=== PATIENT | male | born 1960 | race American Indian/Alaskan Native ===

== ENCOUNTER 2016-09-30 05:34 | Emergency (ER) | payer OTHER ==
[2016-09-30] MEDS ORDERED: ATIVAN IV PRN (06:24)
[2016-09-30] MEDS ORDERED: ATIVAN PO PRN ×2 (06:24)
[2016-09-30 06:40] LABS: Anion Gap 21 mmol/L; Blood Urea Nitrogen 7 mg/dL (9-20); Calcium 8.1 mg/dL (8.4-10.2); Carbon Dioxide 25 mmol/L (22-30); Chloride 104.2 mmol/L (98-107); Glucose 118 mg/dL (75-100); Potassium 4.1 mmol/L (3.6-5.0); Sodium 146 mmol/L (137-145)
[2016-09-30 06:50] LABS: Basophils % (Auto) 0.7 % (0.0-1.8); Eosinophils % (Auto) 0.3 % (0.0-4.3); Hematocrit 41.7 % (35.5-45.6); Hemoglobin 13.6 gm/dl (11.8-15.2); Mean Corpuscular HGB Conc 33 % (32-34); Mean Corpuscular Hemoglobin 28 pg (28-32); Mean Corpuscular Volume 85 fl (84-94); Platelet Count 233 K/mm3 (140-440); Red Blood Count 4.93 M/mm3 (3.65-5.03); Red Cell Distribution Width 16.4 % (13.2-15.2); White Blood Count 8.5 K/mm3 (4.5-11.0)
--- NOTE | 2016-09-30 07:23 | Emergency Department Report ---
ED Psych HPI - General Chief Complaint: Psych Stated Complaint: PSYCH EVALUATION Time Seen by Provider: 09/30/16 06:02 Source: patient Mode of arrival: Ambulatory Limitations: No Limitations - History of Present Illness Initial Comments: 55-year-old male with a past medical history of PTSD, alcohol abuse, and previous suicide attempts presents to the hospital with complaints of suicidal ideation. Patient repeating that he wants to kill himself and is tired of living. He admits to attempting to kill himself in the past with pill overdose and attempted carbon monoxide poisoning with the car in an [place]in the [place]. He' s been having these symptoms intermittently for the last 5 years. He denies being on any current psychiatric medication. He admits to significant alcohol daily with last alcohol use prior to arrival. Denies previous history of alcohol withdrawal seizures or tremors. No physical complaints. - Related Data Home Medications Medication Instructions Recorded Confirmed Last Taken No Known Home Medications [No 10/01/16 10/01/16 Unknown Reported Home Medications] Allergies Allergy/AdvReac Type Severity Reaction Status Date / Time No Known Allergies Allergy Verified 09/30/16 05:45 ED Review of Systems ROS: Stated complaint: PSYCH EVALUATION Other details as noted in HPI Comment: All other systems reviewed and negative Other: Constitutional: No fevers chills Eyes: No eye pain visual changes ENT: No ear pain or throat pain Neck: Denies pain Respiratory: Denies cough wheezing shortness of breath Cardiovascular: Denies chest pain, palpitations, syncope GI: Denies abdominal pain, nausea, vomiting, diarrhea : Denies dysuria Musculoskeletal: Denies back pain Skin: Denies rash, lesions, erythema Neurologic: Denies headache, numbness, weakness Psychiatric: As per HPI ED Past Medical Hx - Past Medical History Previous Medical History?: Yes Hx Psychiatric Treatment: Yes (PTSD, Alcoholic, Prior SI) - Surgical History Past Surgical History?: No Additional Surgical History: Pt Denies - Social History Smoking Status: Current Every Day Smoker Substance Use Type: Alcohol - Medications Home Medications: Home Medications Medication Instructions Recorded Confirmed Last Taken Type No Known Home Medications [No 10/01/16 10/01/16 Unknown History Reported Home Medications] ED Physical Exam - General Limitations: No Limitations - Other Other exam information: General: Alert, no acute distress Head exam: Atraumatic, normocephalic Eyes exam: Normal appearance ENT: Moist mucous membrane, normal oropharynx Neck exam: Normal inspection, full range of motion, no meningismus nontender Respiratory exam: Clear to auscultation bilateral, no wheezes, rales, crackles Cardiovascular: Normal rate and rhythm, normal heart sounds Abdomen: Soft, nondistended, and nontender, with normal bowel sounds, no rebound, or guarding Extremity: Full range of motion normal inspection no deformity Back: Normal Inspection, full range of motion, no tenderness Neurologic: Alert, oriented x3, cranial nerves intact, no motor or sensory deficit Psychiatric: Belligerent at times and physical restraints Skin: Warm, dry, intact ED Course Vital Signs 09/30/16 09/30/16 09/30/16 05:43 10:38 22:00 Temperature 98.1 F 98.0 F 98.5 F Pulse Rate 96 H 91 H 98 H Respiratory 18 18 18 Rate Blood Pressure 134/93 98/60 111/62 [Right] O2 Sat by Pulse 96 98 98 Oximetry 10/01/16 07:44 Temperature 98.6 F Pulse Rate 72 Respiratory 18 Rate Blood Pressure 123/76 [Right] O2 Sat by Pulse 97 Oximetry - Reevaluation(s) Reevaluation #1: 09/30/16 07:21 Patient required physical restraints and staff safe as well. Lab reveal acute alcohol intoxication with a level of 0.44 Reevaluation #2: 09/30/16 07:22 Mental health has been consult however, patient will require continued ED evaluation until his alcohol level decreases below 0.2 for clearance for transfer to inpatient psychiatric facility for suicidal ideation Reevaluation #3: 09/30/16 16:05 repeat etoh ordered. ETOH needs to be below .15 for medical clearance - Consultations Consultation #1: 09/30/16 06:09 Mental health has been consulted ED Medical Decision Making - Lab Data Result diagrams: 09/30/16 06:13 09/30/16 06:13 Lab Results 09/30/16 09/30/16 09/30/16 Range/Units 06:13 06:13 06:13 WBC 8.5 (4.5-11.0) K/mm3 RBC 4.93 (3.65-5.03) M/mm3 Hgb 13.6 (11.8-15.2) gm/dl Hct 41.7 (35.5-45.6) % MCV 85 (84-94) fl MCH 28 (28-32) pg MCHC 33 (32-34) % RDW 16.4 H (13.2-15.2) % Plt Count 233 (140-440) K/mm3 Lymph % (Auto) 48.4 H (13.4-35.0) % [place] % (Auto) 7.8 H (0.0-7.3) % Eos % (Auto) 0.3 (0.0-4.3) % Baso % (Auto) 0.7 (0.0-1.8) % Lymph # 4.1 (1.2-5.4) K/mm3 [place] # 0.7 (0.0-0.8) K/mm3 Eos # 0.0 (0.0-0.4) K/mm3 Baso # 0.1 (0.0-0.1) K/mm3 Seg Neutrophils % 42.8 (40.0-70.0) % Seg Neutrophils # 3.6 (1.8-7.7) K/mm3 Sodium 146 H (137-145) mmol/L Potassium 4.1 (3.6-5.0) mmol/L Chloride 104.2 (98-107) mmol/L Carbon Dioxide 25 (22-30) mmol/L Anion Gap 21 mmol/L BUN 7 L (9-20) mg/dL Creatinine 0.7 L (0.8-1.5) mg/dL Estimated GFR > 60 ml/min BUN/Creatinine Ratio 10.00 % Glucose 118 H (75-100) mg/dL Calcium 8.1 L (8.4-10.2) mg/dL Magnesium (1.7-2.3) mg/dL Urine Color (Yellow) Urine Turbidity (Clear) Urine pH (5.0-7.0) Ur Specific [place] (1.003-1.030) Urine Protein (Negative) mg/dL Urine Glucose (UA) (Negative) mg/dL Urine Ketones (Negative) mg/dL Urine Blood (Negative) Urine Nitrite (Negative) Urine Bilirubin (Negative) Urine Urobilinogen (<2.0) mg/dL Ur Leukocyte Esterase (Negative) Urine WBC (Auto) (0.0-6.0) /HPF Urine RBC (Auto) (0.0-6.0) /HPF Urine Mucus /HPF Urine Opiates Screen Urine Methadone Screen Ur Barbiturates Screen Ur Phencyclidine Scrn Ur Amphetamines Screen U Benzodiazepines Scrn Urine Cocaine Screen U Marijuana (THC) Screen Drugs of Abuse Note Plasma/Serum Alcohol 0.44 H (0-0.07) gm% 09/30/16 09/30/16 09/30/16 Range/Units 06:13 10:00 10:00 WBC (4.5-11.0) K/mm3 RBC (3.65-5.03) M/mm3 Hgb (11.8-15.2) gm/dl Hct (35.5-45.6) % MCV (84-94) fl MCH (28-32) pg MCHC (32-34) % RDW (13.2-15.2) % Plt Count (140-440) K/mm3 Lymph % (Auto) (13.4-35.0) % [place] % (Auto) (0.0-7.3) % Eos % (Auto) (0.0-4.3) % Baso % (Auto) (0.0-1.8) % Lymph # (1.2-5.4) K/mm3 [place] # (0.0-0.8) K/mm3 Eos # (0.0-0.4) K/mm3 Baso # (0.0-0.1) K/mm3 Seg Neutrophils % (40.0-70.0) % Seg Neutrophils # (1.8-7.7) K/mm3 Sodium (137-145) mmol/L Potassium (3.6-5.0) mmol/L Chloride (98-107) mmol/L Carbon Dioxide (22-30) mmol/L Anion Gap mmol/L BUN (9-20) mg/dL Creatinine (0.8-1.5) mg/dL Estimated GFR ml/min BUN/Creatinine Ratio % Glucose (75-100) mg/dL Calcium (8.4-10.2) mg/dL Magnesium 2.20 (1.7-2.3) mg/dL Urine Color Yellow (Yellow) Urine Turbidity Clear (Clear) Urine pH 5.0 (5.0-7.0) Ur Specific [place] 1.011 (1.003-1.030) Urine Protein <15 mg/dl (Negative) mg/dL Urine Glucose (UA) Neg (Negative) mg/dL Urine Ketones Neg (Negative) mg/dL Urine Blood Sm (Negative) Urine Nitrite Neg (Negative) Urine Bilirubin Neg (Negative) Urine Urobilinogen < 2.0 (<2.0) mg/dL Ur Leukocyte Esterase Neg (Negative) Urine WBC (Auto) 1.0 (0.0-6.0) /HPF Urine RBC (Auto) < 1.0 (0.0-6.0) /HPF Urine Mucus Few /HPF Urine Opiates Screen Presumptive negative Urine Methadone Screen Presumptive negative Ur Barbiturates Screen Presumptive negative Ur Phencyclidine Scrn Presumptive negative Ur Amphetamines Screen Presumptive negative U Benzodiazepines Scrn Presumptive negative Urine Cocaine Screen Presumptive negative U Marijuana (THC) Screen Presumptive negative Drugs of Abuse Note Disclamer Plasma/Serum Alcohol (0-0.07) gm% 09/30/16 09/30/16 Range/Units 16:27 19:38 WBC (4.5-11.0) K/mm3 RBC (3.65-5.03) M/mm3 Hgb (11.8-15.2) gm/dl Hct (35.5-45.6) % MCV (84-94) fl MCH (28-32) pg MCHC (32-34) % RDW (13.2-15.2) % Plt Count (140-440) K/mm3 Lymph % (Auto) (13.4-35.0) % [place] % (Auto) (0.0-7.3) % Eos % (Auto) (0.0-4.3) % Baso % (Auto) (0.0-1.8) % Lymph # (1.2-5.4) K/mm3 [place] # (0.0-0.8) K/mm3 Eos # (0.0-0.4) K/mm3 Baso # (0.0-0.1) K/mm3 Seg Neutrophils % (40.0-70.0) % Seg Neutrophils # (1.8-7.7) K/mm3 Sodium (137-145) mmol/L Potassium (3.6-5.0) mmol/L Chloride (98-107) mmol/L Carbon Dioxide (22-30) mmol/L Anion Gap mmol/L BUN (9-20) mg/dL Creatinine (0.8-1.5) mg/dL Estimated GFR ml/min BUN/Creatinine Ratio % Glucose (75-100) mg/dL Calcium (8.4-10.2) mg/dL Magnesium (1.7-2.3) mg/dL Urine Color (Yellow) Urine Turbidity (Clear) Urine pH (5.0-7.0) Ur Specific [place] (1.003-1.030) Urine Protein (Negative) mg/dL Urine Glucose (UA) (Negative) mg/dL Urine Ketones (Negative) mg/dL Urine Blood (Negative) Urine Nitrite (Negative) Urine Bilirubin (Negative) Urine Urobilinogen (<2.0) mg/dL Ur Leukocyte Esterase (Negative) Urine WBC (Auto) (0.0-6.0) /HPF Urine RBC (Auto) (0.0-6.0) /HPF Urine Mucus /HPF Urine Opiates Screen Urine Methadone Screen Ur Barbiturates Screen Ur Phencyclidine Scrn Ur Amphetamines Screen U Benzodiazepines Scrn Urine Cocaine Screen U Marijuana (THC) Screen Drugs of Abuse Note Plasma/Serum Alcohol 0.25 H 0.17 H (0-0.07) gm% - Medical Decision Making 1013 and transfer forms have been signed. Alcohol level needs to be less than 0.15 to be medically clear for transfer to inpatient psych facility. Repeat alcohol pending at this time. [facility] protocol initiated. - Differential Diagnosis suicidal, alcohol abuse, substance abuse, PTSD, depression Critical Care Time: No Critical care attestation.: If time is entered above; I have spent that time in minutes in the direct care of this critically ill patient, excluding procedure time. ED Disposition Clinical Impression: Alcohol abuse, Acute alcohol intoxication, Suicidal ideation, Medical clearance for psychiatric admission, PTSD (post-traumatic stress disorder) Disposition: DC/TX PSY HOSP/PSY UNIT Is pt being admited?: No Condition: Stable Time of Disposition: 16:08
[2016-09-30 10:09] LABS: Urine Drugs of Abuse Note Disclamer
[2016-09-30 10:40] LABS: Bilirubin,Urine NEG (Negative); Blood,Urine SM (Negative); Ketones,Urine NEG (Negative); Leukocyte Esterase,Urine NEG (Negative); Mucus,Urine FEW /HPF; Nitrite,Urine NEG (Negative); Protein,Urine <15 mg/dL mg/dL (Negative); RBC,Urine < 1.0 /HPF (0.0-6.0); Urobilinogen,Urine < 2.0 mg/dL (<2.0)
--- NOTE | 2016-09-30 14:50 | Consultation ---
History of Present Illness - Reason for Consult Consult date: 09/30/16 Reason for consult: psychiatric evaluation - Chief Complaint Chief complaint: "I don't care if I go to hell" 55 year old black male seen in the ER for psychiatric evaluation. He attempted to elope per staff and was moved to a more secure location. He presented with acute intoxication of alcohol and was yelling about killing himself. He was initially uncooperative on interview, covered his head with the blanket but did provide limited information. He states he planned to overdose. He reports depression because his fiance's mother and they were close. Blood alcohol level at 7am was 0.44. He reports auditory hallucinations. History of PTSD. Denied claim for [facility] recently. He expressed anger and frustration about the denial of benefits. Medications and Allergies Allergies Allergy/AdvReac Type Severity Reaction Status Date / Time No Known Allergies Allergy Verified 09/30/16 05:45 Home Medications Medication Instructions Recorded Confirmed Last Taken Type No Known Home Medications [No 10/01/16 10/01/16 Unknown History Reported Home Medications] Active Meds: Active Medications Lorazepam (Ativan) 2 mg PO Q1HR PRN PRN Reason: CIWA-Ar 8-15 Lorazepam (Ativan) 4 mg IV Q15MIN PRN PRN Reason: CIWA-Ar >25 Lorazepam (Ativan) 4 mg PO Q1HR PRN PRN Reason: CIWA-Ar 16-25 Past psychiatric history - Past Medical History Past Medical History: other (unable to assess) Past Surgical History: Other (unable to assess) - past Psychiatric treatment and history psychiatric treatment history: history of overdose earlier in 2016 5 [facility] denies previous treatment - Social History Social history: other (no illicit drugs per patient. unable to assess quantity and severity of alcohol use) Mental Status Exam - Vital signs Last Vital Signs Temp 98.0 F 09/30/16 10:38 Pulse 91 H 09/30/16 10:38 Resp 18 09/30/16 10:38 BP 98/60 09/30/16 10:38 Pulse Ox 98 09/30/16 10:38 - Exam Narrative exam: unable to assess sleep, appetite, and memory unable to determine HI Orientation: place, person Affect: depressed, agitated Mood: congruent with affect Thought content: other (suicidal ideation with plan to overdose) Thought Process: Tangential Perceptions: auditory (would not describe) Speech: slurring (loud) Concentration: unable to pay attention Motor activity: restless Level of consciousness: other (intoxicated) Interaction: irritable, guarded, defensive Results Result Diagrams: 09/30/16 06:13 09/30/16 06:13 Abnormal lab results 09/30/16 09/30/16 09/30/16 Range/Units 06:13 06:13 06:13 RDW 16.4 H (13.2-15.2) % Lymph % (Auto) 48.4 H (13.4-35.0) % [place] % (Auto) 7.8 H (0.0-7.3) % Sodium 146 H (137-145) mmol/L BUN 7 L (9-20) mg/dL Creatinine 0.7 L (0.8-1.5) mg/dL Glucose 118 H (75-100) mg/dL Calcium 8.1 L (8.4-10.2) mg/dL Plasma/Serum Alcohol 0.44 H (0-0.07) gm% All other labs normal. Assessment and Plan Assessment and plan: Impression: Alcohol intoxication Alcohol use disorder, severe PTSD per patient MDD: SI with plan, recent loss Recommendation: Currently does not need detox since his alcohol level would be high enough to keep from having withdrawal yet. Transfer to inpatient psych for alcohol detox , SI with plan once medically cleared Use [facility]WA for concerns with detox
--- NOTE | 2016-10-01 17:17 | Event Note ---
Date: 10/01/16 The patient is seen and evaluated in consultation with psychiatry, Dr. Sierra. Patient is clinically sober at this time. He is not homicidal. He is not suicidal. The patient is alert and oriented 3. He has a GCS of 15, with an NIH score of 0, and currently does not meet 1013 criteria or involuntary hold criteria. the patient's elevated blood alcohol levels are appreciated; most recent blood alcohol level is drawn 24 hours ago. The patient has been under constant observation, and has not consumed any alcohol while here. He is no acute medical complaints at this time, and is suitable for discharge at this point in time. He will be discharged with as needed Librium. Vital Signs 09/30/16 09/30/16 09/30/16 05:43 10:38 22:00 Temperature 98.1 F 98.0 F 98.5 F Pulse Rate 96 H 91 H 98 H Respiratory 18 18 18 Rate Blood Pressure 134/93 98/60 111/62 [Right] O2 Sat by Pulse 96 98 98 Oximetry 10/01/16 07:44 Temperature 98.6 F Pulse Rate 72 Respiratory 18 Rate Blood Pressure 123/76 [Right] O2 Sat by Pulse 97 Oximetry Lab Results 09/30/16 09/30/16 09/30/16 Range/Units 06:13 06:13 06:13 WBC 8.5 (4.5-11.0) K/mm3 RBC 4.93 (3.65-5.03) M/mm3 Hgb 13.6 (11.8-15.2) gm/dl Hct 41.7 (35.5-45.6) % MCV 85 (84-94) fl MCH 28 (28-32) pg MCHC 33 (32-34) % RDW 16.4 H (13.2-15.2) % Plt Count 233 (140-440) K/mm3 Lymph % (Auto) 48.4 H (13.4-35.0) % Day % (Auto) 7.8 H (0.0-7.3) % Eos % (Auto) 0.3 (0.0-4.3) % Baso % (Auto) 0.7 (0.0-1.8) % Lymph # 4.1 (1.2-5.4) K/mm3 Day # 0.7 (0.0-0.8) K/mm3 Eos # 0.0 (0.0-0.4) K/mm3 Baso # 0.1 (0.0-0.1) K/mm3 Seg Neutrophils % 42.8 (40.0-70.0) % Seg Neutrophils # 3.6 (1.8-7.7) K/mm3 Sodium 146 H (137-145) mmol/L Potassium 4.1 (3.6-5.0) mmol/L Chloride 104.2 (98-107) mmol/L Carbon Dioxide 25 (22-30) mmol/L Anion Gap 21 mmol/L BUN 7 L (9-20) mg/dL Creatinine 0.7 L (0.8-1.5) mg/dL Estimated GFR > 60 ml/min BUN/Creatinine Ratio 10.00 % Glucose 118 H (75-100) mg/dL Calcium 8.1 L (8.4-10.2) mg/dL Magnesium (1.7-2.3) mg/dL Urine Color (Yellow) Urine Turbidity (Clear) Urine pH (5.0-7.0) Ur Specific [place] (1.003-1.030) Urine Protein (Negative) mg/dL Urine Glucose (UA) (Negative) mg/dL Urine Ketones (Negative) mg/dL Urine Blood (Negative) Urine Nitrite (Negative) Urine Bilirubin (Negative) Urine Urobilinogen (<2.0) mg/dL Ur Leukocyte Esterase (Negative) Urine WBC (Auto) (0.0-6.0) /HPF Urine RBC (Auto) (0.0-6.0) /HPF Urine Mucus /HPF Urine Opiates Screen Urine Methadone Screen Ur Barbiturates Screen Ur Phencyclidine Scrn Ur Amphetamines Screen U Benzodiazepines Scrn Urine Cocaine Screen U Marijuana (THC) Screen Drugs of Abuse Note Plasma/Serum Alcohol 0.44 H (0-0.07) gm% 09/30/16 09/30/16 09/30/16 Range/Units 06:13 10:00 10:00 WBC (4.5-11.0) K/mm3 RBC (3.65-5.03) M/mm3 Hgb (11.8-15.2) gm/dl Hct (35.5-45.6) % MCV (84-94) fl MCH (28-32) pg MCHC (32-34) % RDW (13.2-15.2) % Plt Count (140-440) K/mm3 Lymph % (Auto) (13.4-35.0) % [place] % (Auto) (0.0-7.3) % Eos % (Auto) (0.0-4.3) % Baso % (Auto) (0.0-1.8) % Lymph # (1.2-5.4) K/mm3 Day # (0.0-0.8) K/mm3 Eos # (0.0-0.4) K/mm3 Baso # (0.0-0.1) K/mm3 Seg Neutrophils % (40.0-70.0) % Seg Neutrophils # (1.8-7.7) K/mm3 Sodium (137-145) mmol/L Potassium (3.6-5.0) mmol/L Chloride (98-107) mmol/L Carbon Dioxide (22-30) mmol/L Anion Gap mmol/L BUN (9-20) mg/dL Creatinine (0.8-1.5) mg/dL Estimated GFR ml/min BUN/Creatinine Ratio % Glucose (75-100) mg/dL Calcium (8.4-10.2) mg/dL Magnesium 2.20 (1.7-2.3) mg/dL Urine Color Yellow (Yellow) Urine Turbidity Clear (Clear) Urine pH 5.0 (5.0-7.0) Ur Specific [place] 1.011 (1.003-1.030) Urine Protein <15 mg/dl (Negative) mg/dL Urine Glucose (UA) Neg (Negative) mg/dL Urine Ketones Neg (Negative) mg/dL Urine Blood Sm (Negative) Urine Nitrite Neg (Negative) Urine Bilirubin Neg (Negative) Urine Urobilinogen < 2.0 (<2.0) mg/dL Ur Leukocyte Esterase Neg (Negative) Urine WBC (Auto) 1.0 (0.0-6.0) /HPF Urine RBC (Auto) < 1.0 (0.0-6.0) /HPF Urine Mucus Few /HPF Urine Opiates Screen Presumptive negative Urine Methadone Screen Presumptive negative Ur Barbiturates Screen Presumptive negative Ur Phencyclidine Scrn Presumptive negative Ur Amphetamines Screen Presumptive negative U Benzodiazepines Scrn Presumptive negative Urine Cocaine Screen Presumptive negative U Marijuana (THC) Screen Presumptive negative Drugs of Abuse Note Disclamer Plasma/Serum Alcohol (0-0.07) gm% 09/30/16 09/30/16 Range/Units 16:27 19:38 WBC (4.5-11.0) K/mm3 RBC (3.65-5.03) M/mm3 Hgb (11.8-15.2) gm/dl Hct (35.5-45.6) % MCV (84-94) fl MCH (28-32) pg MCHC (32-34) % RDW (13.2-15.2) % Plt Count (140-440) K/mm3 Lymph % (Auto) (13.4-35.0) % Day % (Auto) (0.0-7.3) % Eos % (Auto) (0.0-4.3) % Baso % (Auto) (0.0-1.8) % Lymph # (1.2-5.4) K/mm3 Day # (0.0-0.8) K/mm3 Eos # (0.0-0.4) K/mm3 Baso # (0.0-0.1) K/mm3 Seg Neutrophils % (40.0-70.0) % Seg Neutrophils # (1.8-7.7) K/mm3 Sodium (137-145) mmol/L Potassium (3.6-5.0) mmol/L Chloride (98-107) mmol/L Carbon Dioxide (22-30) mmol/L Anion Gap mmol/L BUN (9-20) mg/dL Creatinine (0.8-1.5) mg/dL Estimated GFR ml/min BUN/Creatinine Ratio % Glucose (75-100) mg/dL Calcium (8.4-10.2) mg/dL Magnesium (1.7-2.3) mg/dL Urine Color (Yellow) Urine Turbidity (Clear) Urine pH (5.0-7.0) Ur Specific [place] (1.003-1.030) Urine Protein (Negative) mg/dL Urine Glucose (UA) (Negative) mg/dL Urine Ketones (Negative) mg/dL Urine Blood (Negative) Urine Nitrite (Negative) Urine Bilirubin (Negative) Urine Urobilinogen (<2.0) mg/dL Ur Leukocyte Esterase (Negative) Urine WBC (Auto) (0.0-6.0) /HPF Urine RBC (Auto) (0.0-6.0) /HPF Urine Mucus /HPF Urine Opiates Screen Urine Methadone Screen Ur Barbiturates Screen Ur Phencyclidine Scrn Ur Amphetamines Screen U Benzodiazepines Scrn Urine Cocaine Screen U Marijuana (THC) Screen Drugs of Abuse Note Plasma/Serum Alcohol 0.25 H 0.17 H (0-0.07) gm%
--- NOTE | 2016-10-01 17:43 | Progress Note ---
Subjective - Reason for Consult Consult date: 10/01/16 Reason for consult: acute etoh intoxication Mental Status Exam - Vital signs Last Vital Signs Temp 98.6 F 10/01/16 07:44 Pulse 72 10/01/16 07:44 Resp 18 10/01/16 07:44 BP 123/76 10/01/16 07:44 Pulse Ox 97 10/01/16 07:44 Assessment and Plan Subjectively: The patient is currently calm and cooperative and no longer intoxicated. Consequent to his no longer being Intoxicated, patient is much more reasonable and logical in his thinking. Currently he denies experiencing suicidal thoughts. It appears that while he was an abbreviated, he had expressed these thoughts but does not recall the episode. Patient does report that he has a stable place to go to and that he will attempt to cut back on his drinking. His last BAL was 0.17 at 1900 hours on 09/30. With presumed average metabolic rate reduction of BAL of 20/h, the patient should have a blood alcohol level of 0 around 4 AM on 10/01. Since then, his vitals have been stable and patient does not show signs of withdrawal syndrome. General Appearance: casually dressed, no acute distress Sensorium/Consciousness: alert and responding to external stimuli; clear Orientation: person, place, time and situation Eye Contact: Good Attitude / Behavior: Cooperative Psychomotor & Musculoskeletal Activity: WNL Mood: ok Affect: Euthymic Speech / Language: fluent, with normal rate/rhythm/tone Thought Processes: organized, logical, linear Thought Content: no SI, no HI Perception: no AVH Insight: limited Judgement: limitied Capacity for ADLs: independent Plan: - Rescind 1013 - Provide education regarding signs and symptoms of alcohol withdrawal - Patient does not need inpatient psychiatric care and can follow up with outpatient services
[2016-10-01 20:24] VITALS: BP 139/84
== END 2016-10-01 20:24 | disposition home or self-care (01) ==
LOC: ED 05:34 → EEVIPCON 05:34 → ED 10-01 20:24
DX: R45.851 Suicidal ideations (principal); F43.10 Post-traumatic stress disorder, unspecified; F10.129 Alcohol abuse with intoxication, unspecified; F17.200 Nicotine dependence, unspecified, uncomplicated
CPT/HCPCS: 36415; 80048; 80307; 81001; 83735; 85025; 99284; G0480; 80320

== ENCOUNTER 2016-10-04 01:04 | Emergency (ER) | payer SELFPAY ==
[2016-10-04] MEDS ORDERED: ATIVAN PO ONE (01:50)
--- NOTE | 2016-10-04 01:50 | Emergency Department Report ---
ED Psych HPI - General Chief Complaint: Psych Stated Complaint: MENTAL HEALTH Time Seen by Provider: 10/04/16 01:34 Source: patient Mode of arrival: Ambulatory - History of Present Illness Initial Comments: This is a 55-year-old gentleman who presents to the ED of his own accord. He indicates that he has been drinking heavily today. He states he's been drinking due to his depression related to family member who recently . He does have this history of suicide attempt. He denies having done anything to hurt himself today. He states he presents today specifically just to cool down. He does acknowledge that he was here couple of days ago due to his suicidal ideations and agitation. When asked specifically whether he feels suicidal today he says "" hell no. I love myself too much to kill myself. He does report a good support network of friends and family. He does have stressors in his life. He denies any change in these stressors. He denies any illicit drug use. He doesn't knowledge that he does drink in excess. He states that when he drinks he often binge drinks as well. He has seen psychiatry services in the past. He states he is not currently following with them. He denies being currently on any medications from a depression standpoint as well. Patient denies having done anything to harm himself tonight. He denies any specific plan for harm. He denies any homicidal ideations as well. He denies any auditory or visual hallucinations. Complaint: feels depressed - Related Data Previous Rx's Medication Instructions Recorded Last Taken Type chlordiazePOXIDE [Librium] 25 mg PO Q8H PRN #15 capsule 10/01/16 Unknown Rx Allergies Allergy/AdvReac Type Severity Reaction Status Date / Time No Known Allergies Allergy Verified 09/30/16 05:45 ED Review of Systems ROS: Stated complaint: MENTAL HEALTH Other details as noted in HPI Comment: All other systems reviewed and negative Constitutional: denies: chills, fever, weakness Eyes: denies: eye pain, eye discharge, vision change ENT: denies: ear pain, throat pain Respiratory: denies: cough, shortness of breath, wheezing Cardiovascular: denies: chest pain, palpitations Endocrine: no symptoms reported Gastrointestinal: denies: abdominal pain, nausea, diarrhea Genitourinary: denies: urgency, dysuria Musculoskeletal: denies: back pain, joint swelling, arthralgia Skin: denies: rash, lesions Neurological: denies: headache, weakness, paresthesias Psychiatric: depression. denies: anxiety, auditory hallucinations, visual hallucinations, homicidal thoughts, suicidal thoughts Hematological/Lymphatic: denies: easy bleeding, easy bruising ED Past Medical Hx - Past Medical History Previous Medical History?: Yes Hx Psychiatric Treatment: Yes (PTSD, Alcoholic, Prior SI) - Surgical History Past Surgical History?: Yes Additional Surgical History: Pt Denies - Social History Smoking Status: Current Every Day Smoker Substance Use Type: Alcohol - Medications Home Medications: Home Medications Medication Instructions Recorded Confirmed Last Taken Type chlordiazePOXIDE [Librium] 25 mg PO Q8H PRN #15 capsule 10/01/16 Unknown Rx ED Physical Exam - General Limitations: No Limitations, Language Barrier General appearance: alert, appears intoxicated - Head Head exam: Present: atraumatic, normocephalic - Eye Eye exam: Present: normal appearance, EOMI. Absent: scleral icterus - ENT ENT exam: Present: normal exam, normal orophraynx, mucous membranes moist - Neck Neck exam: Present: normal inspection. Absent: tenderness, lymphadenopathy - Respiratory Respiratory exam: Present: normal lung sounds bilaterally. Absent: wheezes, rales - Cardiovascular Cardiovascular Exam: Present: regular rate, normal rhythm. Absent: systolic murmur, diastolic murmur - GI/Abdominal GI/Abdominal exam: Present: soft. Absent: tenderness, guarding, rebound - Extremities Exam Extremities exam: Present: normal inspection, normal capillary refill. Absent: tenderness, calf tenderness - Back Exam Back exam: Present: normal inspection. Absent: CVA tenderness (R), CVA tenderness (L) - Neurological Exam Neurological exam: Present: alert, oriented X3, normal gait, other - Psychiatric Psychiatric exam: Present: depressed, other (somewhat expensive in his affect.) - Skin Skin exam: Present: warm, dry, intact ED Course Vital Signs 10/04/16 10/04/16 01:15 03:43 Temperature 98.8 F 98 F Pulse Rate 100 H 88 Respiratory 20 18 Rate Blood Pressure 142/89 Blood Pressure 138/87 [Left] O2 Sat by Pulse 97 97 Oximetry - Reevaluation(s) Reevaluation #1: 10/04/16 04:37 Patient is clearly habitual alcoholic given his ability to be so high functional with an alcohol level 0.38. This is only slightly lower than his alcohol from a few days ago. He has had some agitation here. He is verbally redirectable. He hasn't generally been mostly calm while here. I did reiterate with him that he is here voluntarily. I did give him complete opportunity to express whether is feeling suicidal. He is emphatic in denying this. I did indicate that we are happy to provide him with further assistance regarding psychiatric assistance or detox from alcohol as well. He indicates he is not interested in either of these. He states he was given a prescription for Librium when he was here just a few days ago. Patient ultimately spent approximately 3 hours here before he eloped. I did consider putting him on a 1013 but do not feel that this was necessary. Again from a suicidal standpoint is not directly indicating any suicidal thoughts. He clearly has some depression and is self-medicating with alcohol. I did indicate to him that I feel this is a poor choice. He does seem appropriate in general though to the capacity to make reasonable decisions. I feel that he is an imminent harm to himself or others at this time. He does not access psychiatric care. He was given resources as well. ED Medical Decision Making - Lab Data Result diagrams: 10/04/16 02:25 10/04/16 02:25 Critical care attestation.: If time is entered above; I have spent that time in minutes in the direct care of this critically ill patient, excluding procedure time. ED Disposition Clinical Impression: Alcoholic intoxication Qualifiers: Complication of substance-induced condition: uncomplicated Qualified Code(s): F10.120 - Alcohol abuse with intoxication, uncomplicated Depression Qualifiers: Depression Type: major depressive disorder Major depression recurrence: recurrent Active/Remission status: currently active Major depression episode severity: moderate Qualified Code(s): F33.1 - Major depressive disorder, recurrent, moderate Disposition: ELOPED Is pt being admited?: No Does the pt Need Aspirin: No Condition: Stable Time of Disposition: 04:41
[2016-10-04 02:21] LABS: Urine Drugs of Abuse Note Disclamer
[2016-10-04 02:33] LABS: Bacteria,Urine 1+ /HPF (Negative); Bilirubin,Urine NEG (Negative); Blood,Urine NEG (Negative); Ketones,Urine NEG (Negative); Leukocyte Esterase,Urine NEG (Negative); Nitrite,Urine NEG (Negative); Protein,Urine <15 mg/dL mg/dL (Negative); Urobilinogen,Urine < 2.0 mg/dL (<2.0); WBC,Urine < 1.0 /HPF (0.0-6.0)
[2016-10-04 02:45] LABS: Eosinophils % (Auto) 0.6 % (0.0-4.3); Hematocrit 42.3 % (35.5-45.6); Hemoglobin 14.2 gm/dl (11.8-15.2); Mean Corpuscular HGB Conc 34 % (32-34); Mean Corpuscular Hemoglobin 28 pg (28-32); Mean Corpuscular Volume 83 fl (84-94); Platelet Count 272 K/mm3 (140-440)
[2016-10-04 02:50] LABS: Blood Urea Nitrogen 7 mg/dL (9-20); Calcium 8.5 mg/dL (8.4-10.2); Carbon Dioxide 22 mmol/L (22-30); Chloride 101.8 mmol/L (98-107); Glucose 113 mg/dL (75-100); Sodium 142 mmol/L (137-145)
[2016-10-04 03:23] LABS: Anion Gap 23 mmol/L; Potassium 4.8 mmol/L (3.6-5.0)
[2016-10-04 03:45] VITALS: BP 138/87
== END 2016-10-04 04:00 | disposition left against medical advice (07) ==
LOC: EEVIPCON 01:04 → ED 01:04
DX: F33.1 Major depressive disorder, recurrent, moderate (principal); F10.120 Alcohol abuse with intoxication, uncomplicated; F43.10 Post-traumatic stress disorder, unspecified; F17.200 Nicotine dependence, unspecified, uncomplicated
CPT/HCPCS: 36415; 80048; 80307; 81001; 85025; 99283; G0480; 80320

== ENCOUNTER 2016-10-06 07:50 | Emergency (ER) | payer SELFPAY ==
[2016-10-06 09:15] LABS: Basophils % (Auto) 0.9 % (0.0-1.8); Eosinophils % (Auto) 1.5 % (0.0-4.3); Hematocrit 39.4 % (35.5-45.6); Mean Corpuscular HGB Conc 33 % (32-34); Mean Corpuscular Hemoglobin 28 pg (28-32); Mean Corpuscular Volume 84 fl (84-94); Platelet Count 213 K/mm3 (140-440); Red Blood Count 4.67 M/mm3 (3.65-5.03); Red Cell Distribution Width 16.3 % (13.2-15.2); White Blood Count 5.8 K/mm3 (4.5-11.0)
[2016-10-06 09:40] LABS: Anion Gap 21 mmol/L; BUN/Creatinine Ratio 18.57; Blood Urea Nitrogen 13 mg/dL (9-20); Calcium 8.6 mg/dL (8.4-10.2); Carbon Dioxide 23 mmol/L (22-30); Chloride 105.2 mmol/L (98-107); Glucose 89 mg/dL (75-100); Sodium 145 mmol/L (137-145)
[2016-10-06 10:20] LABS: Urine Drugs of Abuse Note Disclamer
[2016-10-06 10:33] LABS: Bilirubin,Urine NEG (Negative); Blood,Urine NEG (Negative); Ketones,Urine NEG (Negative); Leukocyte Esterase,Urine NEG (Negative); Mucus,Urine FEW /HPF; Nitrite,Urine NEG (Negative); Protein,Urine <15 mg/dL mg/dL (Negative); Urobilinogen,Urine < 2.0 mg/dL (<2.0)
--- NOTE | 2016-10-06 14:12 | Emergency Department Report ---
ED Psych HPI - General Chief Complaint: Psych Stated Complaint: DEPRESSION Time Seen by Provider: 10/06/16 09:51 Source: patient Mode of arrival: Ambulatory - History of Present Illness Initial Comments: Apparently this is the patient's third go around with depression and suicidal ideation. It appears he has then here twice before and likely observed and released. This time he reports presents with depression and suicidal ideation. He states he has not taken an overdose nor yet committed any acts of self- harm. MD Complaint: suicidal ideation, feels depressed -: Gradual, year(s) Associated Psychiatric Symptoms: none History of same: No Quality: constant Improves With: none Worsens With: none Associated Symptoms: denies other symptoms Treatments Prior to Arrival: none If Self Harm: admits thoughts of - Related Data Previous Rx's Medication Instructions Recorded Last Taken Type chlordiazePOXIDE [Librium] 25 mg PO Q8H PRN #15 capsule 10/01/16 Unknown Rx Allergies Allergy/AdvReac Type Severity Reaction Status Date / Time No Known Allergies Allergy Verified 09/30/16 05:45 ED Review of Systems ROS: Stated complaint: DEPRESSION Other details as noted in HPI Constitutional: denies: chills, fever Eyes: denies: eye pain, eye discharge, vision change ENT: denies: ear pain, throat pain Respiratory: denies: cough, shortness of breath, wheezing Cardiovascular: denies: chest pain, palpitations Endocrine: no symptoms reported Gastrointestinal: denies: abdominal pain, nausea, diarrhea Genitourinary: denies: urgency, dysuria Musculoskeletal: denies: back pain, joint swelling, arthralgia Skin: denies: rash, lesions Neurological: denies: headache, weakness, paresthesias Psychiatric: as per HPI, depression, suicidal thoughts. denies: anxiety Hematological/Lymphatic: denies: easy bleeding, easy bruising ED Past Medical Hx - Past Medical History Hx Psychiatric Treatment: Yes (PTSD, Alcoholic, Prior SI) - Surgical History Additional Surgical History: Pt Denies - Social History Smoking Status: Current Every Day Smoker Substance Use Type: Alcohol - Medications Home Medications: Home Medications Medication Instructions Recorded Confirmed Last Taken Type chlordiazePOXIDE [Librium] 25 mg PO Q8H PRN #15 capsule 10/01/16 Unknown Rx ED Physical Exam - General Limitations: No Limitations General appearance: alert, in no apparent distress - Head Head exam: Present: atraumatic, normocephalic - Eye Eye exam: Present: normal appearance. Absent: scleral icterus - ENT ENT exam: Present: mucous membranes moist - Neck Neck exam: Present: normal inspection - Respiratory Respiratory exam: Present: normal lung sounds bilaterally. Absent: respiratory distress - Cardiovascular Cardiovascular Exam: Present: regular rate, normal rhythm. Absent: systolic murmur, diastolic murmur, rubs, gallop - GI/Abdominal GI/Abdominal exam: Present: soft, normal bowel sounds. Absent: distended, tenderness, guarding, rebound, rigid, organomegaly, mass - Rectal Rectal exam: Present: deferred - Extremities Exam Extremities exam: Present: normal inspection - Back Exam Back exam: Present: normal inspection - Neurological Exam Neurological exam: Present: alert, oriented X3, CN II-XII intact. Absent: motor sensory deficit - Psychiatric Psychiatric exam: Present: normal affect, normal mood - Skin Skin exam: Present: warm, dry, intact, normal color. Absent: rash ED Course Vital Signs 10/06/16 08:39 Temperature 98.1 F Pulse Rate 82 Respiratory 18 Rate Blood Pressure 116/76 O2 Sat by Pulse 98 Oximetry - Reevaluation(s) Reevaluation #1: I spoke with [facility] health counselor. He indicated that the patient should be 1013. Therefore a order was entered and form signed. 10/06/16 14:15 ED Medical Decision Making - Lab Data Result diagrams: 10/06/16 09:03 10/06/16 09:03 Laboratory Results - last 24 hr 10/06/16 10/06/16 10/06/16 09:03 09:03 09:03 WBC 5.8 RBC 4.67 Hgb 13.0 Hct 39.4 MCV 84 MCH 28 MCHC 33 RDW 16.3 H Plt Count 213 Lymph % (Auto) 36.0 H Ray % (Auto) 8.6 H Eos % (Auto) 1.5 Baso % (Auto) 0.9 Lymph # 2.1 Ray # 0.5 Eos # 0.1 Baso # 0.1 Seg Neutrophils % 53.0 Seg Neutrophils # 3.1 Sodium 145 Potassium 4.0 Chloride 105.2 Carbon Dioxide 23 Anion Gap 21 BUN 13 Creatinine 0.7 L Estimated GFR > 60 BUN/Creatinine Ratio 18.57 Glucose 89 Calcium 8.6 Urine Color Urine Turbidity Urine pH Ur Specific [place]ult[place] Urine Protein Urine Glucose (UA) Urine Ketones Urine Blood Urine Nitrite Urine Bilirubin Urine Urobilinogen Ur Leukocyte Esterase Urine WBC (Auto) Urine RBC (Auto) U Epithel Cells (Auto) Urine Mucus Urine Opiates Screen Urine Methadone Screen Ur Barbiturates Screen Ur Phencyclidine Scrn Ur Amphetamines Screen U Benzodiazepines Scrn Urine Cocaine Screen U Marijuana (THC) Screen Drugs of Abuse Note Plasma/Serum Alcohol 0.16 H 10/06/16 10/06/16 10:10 10:10 WBC RBC Hgb Hct MCV MCH MCHC RDW Plt Count Lymph % (Auto) Ray % (Auto) Eos % (Auto) Baso % (Auto) Lymph # Ray # Eos # Baso # Seg Neutrophils % Seg Neutrophils # Sodium Potassium Chloride Carbon Dioxide Anion Gap BUN Creatinine Estimated GFR BUN/Creatinine Ratio Glucose Calcium Urine Color Yellow Urine Turbidity Clear Urine pH 5.0 Ur Specific [place] 1.019 Urine Protein <15 mg/dl Urine Glucose (UA) Neg Urine Ketones Neg Urine Blood Neg Urine Nitrite Neg Urine Bilirubin Neg Urine Urobilinogen < 2.0 Ur Leukocyte Esterase Neg Urine WBC (Auto) 1.0 Urine RBC (Auto) 1.0 U Epithel Cells (Auto) < 1.0 Urine Mucus Few Urine Opiates Screen Presumptive negative Urine Methadone Screen Presumptive negative Ur Barbiturates Screen Presumptive negative Ur Phencyclidine Scrn Presumptive negative Ur Amphetamines Screen Presumptive negative U Benzodiazepines Scrn Presumptive negative Urine Cocaine Screen Presumptive negative U Marijuana (THC) Screen Presumptive negative Drugs of Abuse Note Disclamer Plasma/Serum Alcohol Critical care attestation.: If time is entered above; I have spent that time in minutes in the direct care of this critically ill patient, excluding procedure time. ED Disposition Clinical Impression: Suicidal ideation Depression Qualifiers: Depression Type: unspecified Qualified Code(s): F32.9 - Major depressive disorder, single episode, unspecified Disposition: DC/TX PSY HOSP/PSY UNIT Is pt being admited?: No Does the pt Need Aspirin: No Condition: Stable Referrals: PRIMARY CARE, [Primary Care Provider] - 3-5 Days Time of Disposition: 14:17
--- NOTE | 2016-10-06 17:33 | Consultation ---
History of Present Illness - Reason for Consult Consult date: 10/06/16 Reason for consult: Mental Health Evaluation Requesting physician: TRISTON LEDESMA - Chief Complaint Chief complaint: "I am suicidal" - History of Present Psychiatric Illness 55 y.o AA male presents to [facility] because of SI's and depression. Today patient is calm and cooperative during assessment. He stated being suicidal with a plan to drink himself to or overdose on pills for the past month. He states that his life is all "screwed up" now. He stated that he and his "ole lady" broke up and now he is homeless. Patient was adamant about not having enough money to live, but he has a job working with [employer] part-time. He stated that he started drinking alcohol (etoh) many years ago in [place] He would not tell me how often he consume alcohol when asked. He stated he been hearing buzzing sounds in both his ears intermittently. He stated that he is consumed with racing thoughts about his future. He denies HI's, VH's, poor appetite, and rate his depression 8/10, with 10 being the worse. Patient denies recreational drug use. He stated that he think about a lot. 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 Medications and Allergies Allergies Allergy/AdvReac Type Severity Reaction Status Date / Time No Known Allergies Allergy Verified 09/30/16 05:45 Home Medications Medication Instructions Recorded Confirmed Last Taken Type chlordiazePOXIDE [Librium] 25 mg PO Q8H PRN #15 capsule 10/01/16 Unknown Rx Past psychiatric history - Past Medical History Past Medical History: No medical history Past Surgical History: No surgical history - past Psychiatric treatment and history psychiatric treatment history: Chronic Alcoholism. Father and brother chronic alcoholism. - Social History Social history: single, other (Homeless) Mental Status Exam - Vital signs Last Vital Signs Temp 98.1 F 10/06/16 08:39 Pulse 82 10/06/16 08:39 Resp 18 10/06/16 08:39 BP 116/76 10/06/16 08:39 Pulse Ox 98 10/06/16 08:39 - Exam Narrative exam: ROS (+) depression MSE: Appearance: calm, cooperative Behavior: good eye contact, guarded Speech: regular rate and tone Mood: "depressed" Affect: mood congruent Thought Process: linear Thought Content: denies SI/HI's and VH's Motor Activity: ambulatory Cognition: a/o x3 Insight: limited Judgment: poor Results Result Diagrams: 10/06/16 09:03 10/06/16 09:03 Abnormal lab results 10/06/16 10/06/16 10/06/16 Range/Units 09:03 09:03 09:03 RDW 16.3 H (13.2-15.2) % Lymph % (Auto) 36.0 H (13.4-35.0) % Christian % (Auto) 8.6 H (0.0-7.3) % Creatinine 0.7 L (0.8-1.5) mg/dL Plasma/Serum Alcohol 0.16 H (0-0.07) gm% All other labs normal. Assessment and Plan Assessment and plan: Impression: MDD with psychotic features/Alcohol Use DO/PTSD. 55 y.o AA male presents to [facility] because of SI's and depression. Today patient is calm and cooperative during assessment. He stated being suicidal with a plan to drink ( etoh) himself to or overdose on pills for the past month. He stated that his life is all "screwed up" now. He stated that he and his "ole lady" broke up and now he is homeless. Patient was adamant about not having enough money to live, but he has a job working with [employer] part-time. He stated that he started drinking alcohol (etoh) many years ago in [place] [place] Alcohol serum 0.16 DD: R/O Bipolar Recommendation/Plan: Continue 1013 with placement to inpatient psy services. Start Zoloft 50 mg PO daily for depression and Seroquel 100 mg PO HS for mood. Discussed possible metabolic side effects of Seroquel and possible suicidality and medication induced bonita reference antidepressants.
[2016-10-06] MEDS ORDERED: ZOLOFT PO SCH (18:00)
[2016-10-07 10:56] VITALS: BP 118/72
== END 2016-10-07 11:11 ==
LOC: ED 07:50
DX: R45.851 Suicidal ideations (principal); F32.9 Major depressive disorder, single episode, unspecified; F43.10 Post-traumatic stress disorder, unspecified; F17.200 Nicotine dependence, unspecified, uncomplicated
CPT/HCPCS: 36415; 80048; 80307; 81001; 85025; 99285; G0480; 80320

== ENCOUNTER 2016-11-02 01:54 | Inpatient (IN) | payer OTHER ==
[~2016-11-02 01:54] MED LIST: AMIDATE IV ONE; KETALAR ONE; ZEMURON IV ONE
[2016-11-02] MEDS ORDERED: NACL 0.9% 1000 ML 2,000 ML ONE (02:14)
[2016-11-02] MEDS ORDERED: ACTIDOSE-AQUA ONE ×2 (02:25→02:31)
[2016-11-02] MEDS ORDERED: NACL 0.9% 1000 ML 1,000 ML IV ONE (02:29)
[2016-11-02] MEDS ORDERED: SODIUM BICARBONATE IV ONE (02:31)
[2016-11-02] MEDS ORDERED: VASELINE LIP THERAPY TP PRN (02:31)
[2016-11-02] MEDS ORDERED: ZEMURON IV ONE (02:31)
[2016-11-02] MEDS ORDERED: ATIVAN IV PRN ×4 (02:31→18:15)
[2016-11-02] MEDS ORDERED: NACL 0.9% 1000 ML 2,000 ML IV ONE (02:31)
[2016-11-02] MEDS ORDERED: ARTIFICIAL TEARS OPHTH OINT OU PRN (02:31)
[2016-11-02] MEDS ORDERED: AMIDATE IV ONE (02:31)
[2016-11-02] MEDS ORDERED: ACTIDOSE-AQUA PO ONE (02:31)
[2016-11-02] MEDS ORDERED: KETALAR IV ONE (02:33)
--- NOTE | 2016-11-02 02:34 | Emergency Department Report ---
ED General Adult HPI - General Chief complaint: Overdose Stated complaint: MH EVAL/POSS OD Time Seen by Provider: 11/02/16 02:29 Source: patient, RN notes reviewed Limitations: Altered Mental Status, Physical Limitation - History of Present Illness Initial comments: This is a 55-year-old male. The patient has a history of alcohol abuse with psychotic features. The patient initially presents to the ER complaining of suicidality and indicating that he overdosed on Seroquel. No family with the patient. No one is available to corroborate history. Review old medical records, indicates that patient was started on Zoloft 50 mg, Seroquel 100 mg May last month. Patient is wheeled into the ER, somnolent, and breathing. He is brought to the resuscitation bay, and placed on a generator worker with supplemental oxygen. Shortly thereafter, the patient began to vomit, and he was place on his right lateral decubitus position. He is suctioned aggressively. IV access is obtained, and the patient is intubated by myself using C-spine immobilization techniques, using direct laryngoscopy with one attempt. A nasogastric tube was placed thereafter, the patient empirically receives 100 g of charcoal, he is started on a fentanyl drip, and he is also given 3 A of sodium bicarbonate. I'm currently on hold waiting to speak to the [place] [facility] for further recommendations. -: unknown Quality: other (per hpi) Consistency: other (per hpi) Improves with: other (per hpi) Worsens with: other (per hpi) Associated Symptoms: other (per hpi) - Related Data Previous Rx's Medication Instructions Recorded Last Taken Type Mirtazapine [Remeron] 15 mg PO QHS #30 tablet 11/04/16 Unknown Rx Allergies Allergy/AdvReac Type Severity Reaction Status Date / Time No Known Allergies Allergy Verified 09/30/16 05:45 ED Review of Systems ROS: Stated complaint: MH EVAL/POSS OD Other details as noted in HPI Comment: Unobtainable due to pts medical conditions ED Past Medical Hx - Past Medical History Hx Psychiatric Treatment: Yes (PTSD, Alcoholic, Prior SI) - Surgical History Additional Surgical History: Pt Denies - Social History Smoking Status: Current Every Day Smoker Substance Use Type: Alcohol - Medications Home Medications: Home Medications Medication Instructions Recorded Confirmed Last Taken Type Mirtazapine [Remeron] 15 mg PO QHS #30 tablet 11/04/16 11/06/16 Unknown Rx ED Physical Exam - General Limitations: Altered Mental Status General appearance: lethargic - Head Head exam: Present: atraumatic, normocephalic - Eye Eye exam: Present: normal appearance, PERRL - ENT ENT exam: Present: mucous membranes moist, other (patient has copious oral secretions in the oropharynx) - Neck Neck exam: Present: normal inspection, full ROM. Absent: tenderness, meningismus - Respiratory Respiratory exam: Present: normal lung sounds bilaterally. Absent: respiratory distress, rhonchi - Cardiovascular Cardiovascular Exam: Present: normal rhythm, tachycardia, normal heart sounds. Absent: bradycardia, irregular rhythm, systolic murmur, diastolic murmur, rubs, gallop - GI/Abdominal GI/Abdominal exam: Present: soft, normal bowel sounds. Absent: distended, tenderness, guarding, rebound, rigid, pulsatile mass - Rectal Rectal exam: Present: normal inspection - exam: Present: normal inspection - Extremities Exam Extremities exam: Present: normal inspection, normal capillary refill. Absent: calf tenderness - Back Exam Back exam: Present: normal inspection - Neurological Exam Neurological exam: Present: altered - Psychiatric Psychiatric exam: Present: other (possible suicide) - Skin Skin exam: Present: warm, dry, intact, normal color. Absent: rash ED Course Vital Signs 11/02/16 11/02/16 11/02/16 02:00 02:31 02:52 Temperature Pulse Rate 117 H 115 H Respiratory 18 18 Rate Blood Pressure 135/85 140/88 Blood Pressure [Right] O2 Sat by Pulse 100 100 100 Oximetry 11/02/16 11/02/16 11/02/16 03:32 03:48 04:30 Temperature 98.5 F Pulse Rate 123 H 109 H 104 H Respiratory 21 24 Rate Blood Pressure Blood Pressure 108/84 [Right] O2 Sat by Pulse 98 96 97 Oximetry 11/02/16 11/02/16 11/02/16 04:38 04:40 04:50 Temperature Pulse Rate 103 H 99 H 101 H Respiratory 21 21 22 Rate Blood Pressure 102/61 103/65 Blood Pressure 102/61 [Right] O2 Sat by Pulse 97 97 98 Oximetry 11/02/16 11/02/16 11/02/16 05:00 05:10 05:20 Temperature Pulse Rate 98 H 95 H 95 H Respiratory 22 21 22 Rate Blood Pressure 96/61 96/61 96/57 Blood Pressure [Right] O2 Sat by Pulse 98 99 99 Oximetry 11/02/16 11/02/16 11/02/16 05:30 05:40 05:50 Temperature Pulse Rate 92 H 91 H 89 Respiratory 22 20 21 Rate Blood Pressure 91/61 91/61 96/62 Blood Pressure [Right] O2 Sat by Pulse 99 99 98 Oximetry 11/02/16 11/02/16 11/02/16 06:00 06:10 06:20 Temperature Pulse Rate 102 H 122 H 98 H Respiratory 26 H 19 20 Rate Blood Pressure 133/98 133/98 130/90 Blood Pressure [Right] O2 Sat by Pulse 98 97 98 Oximetry 11/02/16 11/02/16 11/02/16 06:52 07:00 07:06 Temperature Pulse Rate 97 H 106 H 100 H Respiratory 20 19 Rate Blood Pressure 130/90 113/79 113/79 Blood Pressure [Right] O2 Sat by Pulse 100 99 100 Oximetry 11/02/16 11/02/16 11/02/16 07:10 07:20 07:30 Temperature Pulse Rate 97 H 96 H 91 H Respiratory 23 21 22 Rate Blood Pressure 113/79 92/58 95/58 Blood Pressure [Right] O2 Sat by Pulse 100 100 100 Oximetry 11/02/16 11/02/16 11/02/16 07:40 07:50 08:00 Temperature Pulse Rate 90 89 89 Respiratory 20 20 20 Rate Blood Pressure 130/90 97/62 97/64 Blood Pressure [Right] O2 Sat by Pulse 100 99 99 Oximetry 11/02/16 11/02/16 11/02/16 08:10 08:20 08:30 Temperature Pulse Rate 88 88 87 Respiratory 20 23 24 Rate Blood Pressure 97/64 97/61 102/68 Blood Pressure [Right] O2 Sat by Pulse 99 99 100 Oximetry 11/02/16 11/02/16 11/02/16 08:40 08:46 08:50 Temperature 95.9 F L Pulse Rate 88 90 Respiratory 20 21 Rate Blood Pressure 112/72 100/64 Blood Pressure [Right] O2 Sat by Pulse 98 99 Oximetry 11/02/16 11/02/16 11/02/16 09:00 09:10 09:20 Temperature Pulse Rate 88 89 91 H Respiratory 20 20 23 Rate Blood Pressure 91/62 91/62 96/62 Blood Pressure [Right] O2 Sat by Pulse 99 99 99 Oximetry 11/02/16 11/02/16 11/02/16 09:30 09:40 09:47 Temperature 96.8 F L Pulse Rate 87 86 Respiratory 20 22 Rate Blood Pressure 91/62 100/64 Blood Pressure [Right] O2 Sat by Pulse 99 100 Oximetry 11/02/16 11/02/16 11/02/16 09:50 10:00 10:10 Temperature Pulse Rate 86 84 87 Respiratory 22 21 20 Rate Blood Pressure 99/62 100/63 100/63 Blood Pressure [Right] O2 Sat by Pulse 100 99 99 Oximetry 11/02/16 11/02/16 11/02/16 10:20 10:30 10:40 Temperature Pulse Rate 91 H 89 90 Respiratory 20 26 H 20 Rate Blood Pressure 94/62 101/66 101/66 Blood Pressure [Right] O2 Sat by Pulse 99 99 99 Oximetry 11/02/16 11/02/16 11/02/16 10:50 11:00 11:10 Temperature Pulse Rate 91 H 92 H 93 H Respiratory 22 21 21 Rate Blood Pressure 96/64 95/58 95/58 Blood Pressure [Right] O2 Sat by Pulse 99 97 98 Oximetry 11/02/16 11/02/16 11/02/16 11:20 11:30 11:40 Temperature Pulse Rate 109 H 108 H 101 H Respiratory 20 20 22 Rate Blood Pressure 101/65 127/80 127/80 Blood Pressure [Right] O2 Sat by Pulse 96 97 95 Oximetry 11/02/16 11/02/16 11/02/16 11:50 12:00 12:10 Temperature Pulse Rate 99 H 102 H 98 H Respiratory 21 22 20 Rate Blood Pressure 111/72 100/69 111/72 Blood Pressure [Right] O2 Sat by Pulse 95 95 97 Oximetry 11/02/16 11/02/16 11/02/16 12:20 12:30 12:40 Temperature Pulse Rate 97 H 98 H 97 H Respiratory 21 22 21 Rate Blood Pressure 104/70 107/68 107/68 Blood Pressure [Right] O2 Sat by Pulse 96 97 97 Oximetry 11/02/16 11/02/16 11/02/16 12:50 13:00 13:10 Temperature Pulse Rate 103 H 102 H 105 H Respiratory 24 21 23 Rate Blood Pressure 109/71 112/82 112/82 Blood Pressure [Right] O2 Sat by Pulse 97 98 98 Oximetry 11/02/16 11/02/16 11/02/16 13:20 13:30 13:40 Temperature Pulse Rate 106 H 106 H 112 H Respiratory 15 14 11 L Rate Blood Pressure 122/76 127/83 127/83 Blood Pressure [Right] O2 Sat by Pulse 97 88 96 Oximetry 11/02/16 11/02/16 11/02/16 13:50 14:00 14:10 Temperature Pulse Rate 117 H 117 H 119 H Respiratory 13 11 L 25 H Rate Blood Pressure 110/62 115/62 115/62 Blood Pressure [Right] O2 Sat by Pulse 98 98 99 Oximetry 11/02/16 11/02/16 11/02/16 14:20 14:30 14:40 Temperature Pulse Rate 121 H 122 H 122 H Respiratory 23 14 11 L Rate Blood Pressure 101/59 100/67 100/67 Blood Pressure [Right] O2 Sat by Pulse 99 99 100 Oximetry 11/02/16 11/02/16 11/02/16 14:50 15:00 15:10 Temperature Pulse Rate 122 H 120 H 120 H Respiratory 9 L 11 L 9 L Rate Blood Pressure 93/63 102/60 102/60 Blood Pressure [Right] O2 Sat by Pulse 100 99 99 Oximetry 11/02/16 11/02/16 11/02/16 15:20 15:30 15:40 Temperature Pulse Rate 124 H 119 H 119 H Respiratory 37 H 37 H 37 H Rate Blood Pressure 107/68 102/74 102/74 Blood Pressure [Right] O2 Sat by Pulse 99 100 98 Oximetry 11/02/16 11/02/16 11/02/16 15:50 16:00 16:10 Temperature Pulse Rate 119 H 119 H 121 H Respiratory 36 H 32 H 35 H Rate Blood Pressure 102/60 110/60 110/60 Blood Pressure [Right] O2 Sat by Pulse 99 100 99 Oximetry 11/02/16 11/02/16 11/02/16 16:20 16:30 16:40 Temperature Pulse Rate 119 H 120 H 121 H Respiratory 24 22 33 H Rate Blood Pressure 119/70 122/65 122/65 Blood Pressure [Right] O2 Sat by Pulse 99 99 99 Oximetry 11/02/16 11/02/16 11/02/16 16:50 17:00 17:10 Temperature Pulse Rate 122 H 121 H 121 H Respiratory 37 H 20 17 Rate Blood Pressure 115/70 106/73 106/73 Blood Pressure [Right] O2 Sat by Pulse 99 98 98 Oximetry 11/02/16 11/02/16 11/02/16 17:20 17:30 17:40 Temperature Pulse Rate 118 H 119 H 120 H Respiratory 19 13 18 Rate Blood Pressure 99/63 119/65 119/65 Blood Pressure [Right] O2 Sat by Pulse 99 98 98 Oximetry 11/02/16 11/02/16 11/02/16 17:50 18:00 18:09 Temperature Pulse Rate 119 H 119 H 118 H Respiratory 17 12 18 Rate Blood Pressure 99/63 101/68 Blood Pressure 101/68 [Right] O2 Sat by Pulse 98 98 100 Oximetry 11/02/16 11/02/16 11/02/16 18:10 18:20 18:30 Temperature Pulse Rate 117 H 119 H 117 H Respiratory 16 15 8 L Rate Blood Pressure 101/68 100/72 102/72 Blood Pressure [Right] O2 Sat by Pulse 98 98 98 Oximetry 11/02/16 11/02/16 11/02/16 18:40 18:50 19:00 Temperature Pulse Rate 119 H 116 H 116 H Respiratory 9 L 9 L 8 L Rate Blood Pressure 102/72 105/68 105/72 Blood Pressure [Right] O2 Sat by Pulse 98 98 98 Oximetry 11/02/16 11/02/16 11/02/16 19:10 19:20 19:30 Temperature Pulse Rate 117 H 117 H 116 H Respiratory 10 L 10 L 9 L Rate Blood Pressure 105/72 105/72 102/75 Blood Pressure [Right] O2 Sat by Pulse 97 96 97 Oximetry 11/02/16 11/02/16 11/02/16 19:40 19:50 20:05 Temperature 98.8 F Pulse Rate 117 H 113 H Respiratory 12 13 Rate Blood Pressure 102/75 110/84 Blood Pressure [Right] O2 Sat by Pulse 97 Oximetry - Reevaluation(s) Reevaluation #1: 11/02/16 05:03 Differential diagnosis: Polysubstance overdose, suicidality, alcohol intoxication, electrolyte derangement Assessment and plan: 55-year-old male with possible polysubstance overdose requiring intubation. Serum toxicology studies are negative with the exception of elevated ethanol level. He is placed on a 1013. EKG does not suggest antipsychotic overdose. Currently on hold with the [place] [facility] to discuss recommendations. Patient will be placed in ICU. His electrolyte derangements have been addressed. - Intubation Time Out Performed: Yes Sedative: Etomidate Mg Given: 20 Paralytic: Rocuronium Mg Given: 100 Laryngoscope: Anna Assist Device Used: Bougie ET Tube Size: 7.5 Tube Secured Location: teeth Tube Placement Confirmation: visualized tube passing t Patient Tolerated Procedure: well Intubation Complications: other (patient vomited prior to intubation, possibly aspirated) Additional Comments: Patient received bag valve mask ventilation. He is aggressively suctioned. he Receives passive apneic oxygenation. He does not desaturate. Direct laryngoscopy is performed, a bougie introduced devices placed, and an endotracheal tube was introduced without difficulty. ED Medical Decision Making - Lab Data Result diagrams: 11/03/16 05:12 11/03/16 05:12 Vital Signs 11/02/16 11/02/16 11/02/16 02:00 02:31 02:52 Temperature Pulse Rate 117 H 115 H Respiratory 18 18 Rate Blood Pressure 135/85 140/88 Blood Pressure [Right] O2 Sat by Pulse 100 100 100 Oximetry 11/02/16 11/02/16 11/02/16 03:32 03:48 04:38 Temperature 98.5 F Pulse Rate 123 H 109 H 103 H Respiratory 21 21 Rate Blood Pressure Blood Pressure 108/84 102/61 [Right] O2 Sat by Pulse 98 96 97 Oximetry Lab Results 11/02/16 11/02/16 11/02/16 Range/Units 02:50 02:50 02:50 WBC 7.8 (4.5-11.0) K/mm3 RBC 4.40 (3.65-5.03) M/mm3 Hgb 12.0 (11.8-15.2) gm/dl Hct 36.7 (35.5-45.6) % MCV 84 (84-94) fl MCH 27 L (28-32) pg MCHC 33 (32-34) % RDW 15.6 H (13.2-15.2) % Plt Count 129 L (140-440) K/mm3 PT 15.9 H (12.2-14.9) Sec. INR 1.28 H (0.87-1.13) POC ABG pH (7.35-7.45) POC ABG pCO2 (35-45) POC ABG pO2 (80-105) POC ABG HCO3 POC ABG Total CO2 POC ABG O2 Sat POC ABG Base Excess FiO2 % Sodium 146 H (137-145) mmol/L Potassium 3.3 L (3.6-5.0) mmol/L Chloride 102.6 (98-107) mmol/L Carbon Dioxide 26 (22-30) mmol/L Anion Gap 21 mmol/L BUN 8 L (9-20) mg/dL Creatinine 0.8 (0.8-1.5) mg/dL Estimated GFR > 60 ml/min BUN/Creatinine Ratio 10.00 % Glucose 112 H (75-100) mg/dL Lactic Acid (0.7-2.0) mmol/L Calcium 7.5 L (8.4-10.2) mg/dL Magnesium 1.70 (1.7-2.3) mg/dL Total Bilirubin 0.30 (0.1-1.2) mg/dL AST 16 (5-40) units/L ALT 16 (7-56) units/L Alkaline Phosphatase 43 (35-129) units/L Ammonia (25-60) umol/L Total Creatine Kinase 203 H (55-170) units/L Total Protein 5.5 L (6.3-8.2) g/dL Albumin 3.0 L (3.9-5) g/dL Albumin/Globulin Ratio 1.2 % Salicylates (2.8-20.0) mg/dL Urine Opiates Screen Urine Methadone Screen Acetaminophen (10.0-30.0) ug/mL Ur Barbiturates Screen Ur Phencyclidine Scrn Ur Amphetamines Screen U Benzodiazepines Scrn Urine Cocaine Screen U Marijuana (THC) Screen Drugs of Abuse Note Plasma/Serum Alcohol (0-0.07) gm% 11/02/16 11/02/16 11/02/16 Range/Units 02:50 02:50 02:50 WBC (4.5-11.0) K/mm3 RBC (3.65-5.03) M/mm3 Hgb (11.8-15.2) gm/dl Hct (35.5-45.6) % MCV (84-94) fl MCH (28-32) pg MCHC (32-34) % RDW (13.2-15.2) % Plt Count (140-440) K/mm3 PT (12.2-14.9) Sec. INR (0.87-1.13) POC ABG pH (7.35-7.45) POC ABG pCO2 (35-45) POC ABG pO2 (80-105) POC ABG HCO3 POC ABG Total CO2 POC ABG O2 Sat POC ABG Base Excess FiO2 % Sodium (137-145) mmol/L Potassium (3.6-5.0) mmol/L Chloride (98-107) mmol/L Carbon Dioxide (22-30) mmol/L Anion Gap mmol/L BUN (9-20) mg/dL Creatinine (0.8-1.5) mg/dL Estimated GFR ml/min BUN/Creatinine Ratio % Glucose (75-100) mg/dL Lactic Acid 4.20 H* (0.7-2.0) mmol/L Calcium (8.4-10.2) mg/dL Magnesium (1.7-2.3) mg/dL Total Bilirubin (0.1-1.2) mg/dL AST (5-40) units/L ALT (7-56) units/L Alkaline Phosphatase (35-129) units/L Ammonia 57.0 (25-60) umol/L Total Creatine Kinase (55-170) units/L Total Protein (6.3-8.2) g/dL Albumin (3.9-5) g/dL Albumin/Globulin Ratio % Salicylates < 0.3 L (2.8-20.0) mg/dL Urine Opiates Screen Urine Methadone Screen Acetaminophen (10.0-30.0) ug/mL Ur Barbiturates Screen Ur Phencyclidine Scrn Ur Amphetamines Screen U Benzodiazepines Scrn Urine Cocaine Screen U Marijuana (THC) Screen Drugs of Abuse Note Plasma/Serum Alcohol (0-0.07) gm% 11/02/16 11/02/16 11/02/16 Range/Units 02:50 02:50 03:22 WBC (4.5-11.0) K/mm3 RBC (3.65-5.03) M/mm3 Hgb (11.8-15.2) gm/dl Hct (35.5-45.6) % MCV (84-94) fl MCH (28-32) pg MCHC (32-34) % RDW (13.2-15.2) % Plt Count (140-440) K/mm3 PT (12.2-14.9) Sec. INR (0.87-1.13) POC ABG pH 7.447 (7.35-7.45) POC ABG pCO2 45.4 H (35-45) POC ABG pO2 417 H (80-105) POC ABG HCO3 31.3 POC ABG Total CO2 33 POC ABG O2 Sat 100 POC ABG Base Excess 7 FiO2 100 % Sodium (137-145) mmol/L Potassium (3.6-5.0) mmol/L Chloride (98-107) mmol/L Carbon Dioxide (22-30) mmol/L Anion Gap mmol/L BUN (9-20) mg/dL Creatinine (0.8-1.5) mg/dL Estimated GFR ml/min BUN/Creatinine Ratio % Glucose (75-100) mg/dL Lactic Acid (0.7-2.0) mmol/L Calcium (8.4-10.2) mg/dL Magnesium (1.7-2.3) mg/dL Total Bilirubin (0.1-1.2) mg/dL AST (5-40) units/L ALT (7-56) units/L Alkaline Phosphatase (35-129) units/L Ammonia (25-60) umol/L Total Creatine Kinase (55-170) units/L Total Protein (6.3-8.2) g/dL Albumin (3.9-5) g/dL Albumin/Globulin Ratio % Salicylates (2.8-20.0) mg/dL Urine Opiates Screen Urine Methadone Screen Acetaminophen < 15.0 (10.0-30.0) ug/mL Ur Barbiturates Screen Ur Phencyclidine Scrn Ur Amphetamines Screen U Benzodiazepines Scrn Urine Cocaine Screen U Marijuana (THC) Screen Drugs of Abuse Note Plasma/Serum Alcohol 0.22 H (0-0.07) gm% 11/02/16 Range/Units 03:49 WBC (4.5-11.0) K/mm3 RBC (3.65-5.03) M/mm3 Hgb (11.8-15.2) gm/dl Hct (35.5-45.6) % MCV (84-94) fl MCH (28-32) pg MCHC (32-34) % RDW (13.2-15.2) % Plt Count (140-440) K/mm3 PT (12.2-14.9) Sec. INR (0.87-1.13) POC ABG pH (7.35-7.45) POC ABG pCO2 (35-45) POC ABG pO2 (80-105) POC ABG HCO3 POC ABG Total CO2 POC ABG O2 Sat POC ABG Base Excess FiO2 % Sodium (137-145) mmol/L Potassium (3.6-5.0) mmol/L Chloride (98-107) mmol/L Carbon Dioxide (22-30) mmol/L Anion Gap mmol/L BUN (9-20) mg/dL Creatinine (0.8-1.5) mg/dL Estimated GFR ml/min BUN/Creatinine Ratio % Glucose (75-100) mg/dL Lactic Acid (0.7-2.0) mmol/L Calcium (8.4-10.2) mg/dL Magnesium (1.7-2.3) mg/dL Total Bilirubin (0.1-1.2) mg/dL AST (5-40) units/L ALT (7-56) units/L Alkaline Phosphatase (35-129) units/L Ammonia (25-60) umol/L Total Creatine Kinase (55-170) units/L Total Protein (6.3-8.2) g/dL Albumin (3.9-5) g/dL Albumin/Globulin Ratio % Salicylates (2.8-20.0) mg/dL Urine Opiates Screen Presumptive negative Urine Methadone Screen Presumptive negative Acetaminophen (10.0-30.0) ug/mL Ur Barbiturates Screen Presumptive negative Ur Phencyclidine Scrn Presumptive negative Ur Amphetamines Screen Presumptive negative U Benzodiazepines Scrn Presumptive negative Urine Cocaine Screen Presumptive negative U Marijuana (THC) Screen Presumptive negative Drugs of Abuse Note Disclamer Plasma/Serum Alcohol (0-0.07) gm% - EKG Data -: EKG Interpreted by Me EKG shows normal: sinus rhythm Rate: tachycardia - Radiology Data Radiology results: report reviewed, image reviewed interpreted by me: X-ray of the chest is negative for acute disease. Endotracheal tube, oral gastric tube noted in the appropriate position Noncontrast CT scan of the brain and cervical spine are negative Critical Care Time: Yes Critical care time in (mins) excluding proc time.: 45 Critical care attestation.: If time is entered above; I have spent that time in minutes in the direct care of this critically ill patient, excluding procedure time. Critical Care Time: Critical care time included multiple bedside evaluations, interpretation of laboratory studies, radiology studies, time spent managing critically ill patient with probable polysubstance overdose requiring intubation and ventilator management, discussion with hospital medicine, and the Poison Control Center. This does not include procedure time. ED Disposition Clinical Impression: Overdose Alcohol intoxication Qualifiers: Complication of substance-induced condition: uncomplicated Qualified Code(s): F10.920 - Alcohol use, unspecified with intoxication, uncomplicated Disposition: DC-09 OP ADMIT IP TO THIS HOSP Is pt being admited?: Yes Condition: Good
[2016-11-02] MEDS ORDERED: KETALAR ONE (02:36)
[2016-11-02] MEDS ORDERED: fentaNYL DRIP Premix 2,000 MCG/100 ML BAG IV SCH (03:00)
--- NOTE | 2016-11-02 03:08 | XRay Report ---
FINAL REPORT PROCEDURE: XR CHEST 1V AP TECHNIQUE: Chest radiograph anteroposterior view. CPT 34093 HISTORY: ETT placement COMPARISON: No prior studies are available for comparison. FINDINGS: Heart: Normal. Mediastinum/Vessels: Normal. Lungs/Pleural space: Normal. Bony thorax: No acute osseous abnormality. Life support devices: The endotracheal tube ends 4 centimeters above the darrian. The nasogastric tube ends below the hemidiaphragms. IMPRESSION: There is no evidence of an acute infiltrate or effusion. The endotracheal tube and nasogastric tube are properly positioned..
[2016-11-02 03:30] LABS: ISTAT Base Excess 7; ISTAT HCO3 31.3; ISTAT PCO2 45.4 (35-45); ISTAT PH 7.447 (7.35-7.45); ISTAT PO2 417 (80-105); ISTAT SO2 100; ISTAT TCO2 33
[2016-11-02 03:35] LABS: Alanine Aminotransferase 16 units/L (7-56); Albumin/Globulin Ratio 1.2 %; Alkaline Phosphatase 43 units/L (35-129); Anion Gap 21 mmol/L; Blood Urea Nitrogen 8 mg/dL (9-20); Calcium 7.5 mg/dL (8.4-10.2); Carbon Dioxide 26 mmol/L (22-30); Chloride 102.6 mmol/L (98-107); Creatine Kinase 203 units/L (55-170); Glucose 112 mg/dL (75-100); Potassium 3.3 mmol/L (3.6-5.0); Sodium 146 mmol/L (137-145); Total Protein 5.5 g/dL (6.3-8.2)
[2016-11-02 03:40] LABS: Hematocrit 36.7 % (35.5-45.6); Mean Corpuscular HGB Conc 33 % (32-34); Mean Corpuscular Hemoglobin 27 pg (28-32); Mean Corpuscular Volume 84 fl (84-94); Platelet Count 129 K/mm3 (140-440); Red Cell Distribution Width 15.6 % (13.2-15.2); White Blood Count 7.8 K/mm3 (4.5-11.0)
[2016-11-02 03:49] LABS: INR 1.28 (0.87-1.13)
[2016-11-02 04:33] LABS: Urine Drugs of Abuse Note Disclamer
[2016-11-02] MEDS ORDERED: TYLENOL PR PRN (05:57)
[2016-11-02] MEDS ORDERED: ZOFRAN IV PRN (05:57)
[2016-11-02] MEDS ORDERED: TYLENOL PO PRN (05:57)
[2016-11-02] MEDS: KCL 10MEQ/100ML 10 MEQ/100 ML BAG IV SCH ×5 (06:00→08:43)
--- NOTE | 2016-11-02 06:06 | History and Physical Report ---
History of Present Illness Date of examination: 11/02/16 History of present illness: This is a 55-year-old man with a history of depression came to the emergency room and told the nurse that he overdosed on Seroquel. The patient was found to be very lethargic and was brought emergently back into the emergency room where he was intubated. History and review of system is unobtainable PAST SURGICAL HISTORY: Unknown SOCIAL HISTORY:Alcohol use, unknown tobacco or drugs FAMILY HISTORY: Unknown Medications and Allergies Allergies Allergy/AdvReac Type Severity Reaction Status Date / Time No Known Allergies Allergy Verified 09/30/16 05:45 Home Medications Medication Instructions Recorded Confirmed Last Taken Type Unobtainable 11/02/16 11/02/16 Unknown History Active Meds: Active Medications Acetaminophen (Tylenol) 650 mg PO Q4H PRN PRN Reason: Pain MILD(1-3)/Fever >100.5/MCDONNELL Acetaminophen (Tylenol) 650 mg NE Q4H PRN PRN Reason: Pain MILD(1-3)/Fever >100.5/MCDONNELL Enoxaparin Sodium (Lovenox) 30 mg SUB-Q QDAY [facility] Hydrophilic Ointment (Vaseline Lip Therapy) 1 applic TP Q2HR PRN PRN Reason: Dry Lips Fentanyl Citrate (Fentanyl Drip Premix) 2,000 mcg in 100 mls @ 4.082 mls/hr IV TITR LAMIN; 1 MCG/KG/HR PRN Reason: Protocol Potassium Chloride (Kcl 10meq/100ml) 10 meq in 100 mls @ 100 mls/hr IV Q1H [facility] Stop: 11/02/16 07:59 Sodium Chloride (Nacl 0.9% 1000 Ml) 1,000 mls @ 150 mls/hr IV DIRECT [facility] Lorazepam (Ativan) 4 mg IV Q4HR PRN PRN Reason: Agitation Multi-Ingred Cream/Lotion/Oil/Oint (Artificial Tears Ophth Oint) 1 applic OU Q4HR PRN PRN Reason: Dry Eye(s) Ondansetron HCl (Zofran) 4 mg IV Q8H PRN PRN Reason: N/V unrelieved by Reglan Exam - Physical Exam Narrative exam: Gen. appearance: Patient lying in bed, no apparent distress, intubated, sedated HEENT: Normocephalic, atraumatic, pupils equally round and reactive to light, unable to do extraocular movement, and no sclericterus,. No JVD or thyromegaly or nodule,neck supple, no carotid bruit ,mucous membranes moist, unable to examine oral cavity, ET tube in place Heart: S1, S2, regular rate and rhythm Lungs: Clear to auscultation bilaterally, breathing comfortable Abdomen: Positive bowel sounds, nontender, nondistended, no organomegaly Extremity: No edema, cyanosis, clubbing Skin: No rash, nodules, warm, dry Neuro: Sedated - Constitutional Vitals: Temp Pulse Resp BP Pulse Ox 98.5 F 101 H 22 103/65 98 11/02/16 03:48 11/02/16 04:50 11/02/16 04:50 11/02/16 04:50 11/02/16 04:50 Results - Labs CBC & Chem 7: 11/03/16 05:12 11/03/16 05:12 Labs: Abnormal lab results 11/02/16 11/02/16 11/02/16 Range/Units 02:50 02:50 02:50 MCH 27 L (28-32) pg RDW 15.6 H (13.2-15.2) % Plt Count 129 L (140-440) K/mm3 PT 15.9 H (12.2-14.9) Sec. INR 1.28 H (0.87-1.13) POC ABG pCO2 (35-45) POC ABG pO2 (80-105) Sodium 146 H (137-145) mmol/L Potassium 3.3 L (3.6-5.0) mmol/L BUN 8 L (9-20) mg/dL Glucose 112 H (75-100) mg/dL Lactic Acid (0.7-2.0) mmol/L Calcium 7.5 L (8.4-10.2) mg/dL Total Creatine Kinase 203 H (55-170) units/L Total Protein 5.5 L (6.3-8.2) g/dL Albumin 3.0 L (3.9-5) g/dL Salicylates (2.8-20.0) mg/dL Plasma/Serum Alcohol (0-0.07) gm% 11/02/16 11/02/16 11/02/16 Range/Units 02:50 02:50 02:50 MCH (28-32) pg RDW (13.2-15.2) % Plt Count (140-440) K/mm3 PT (12.2-14.9) Sec. INR (0.87-1.13) POC ABG pCO2 (35-45) POC ABG pO2 (80-105) Sodium (137-145) mmol/L Potassium (3.6-5.0) mmol/L BUN (9-20) mg/dL Glucose (75-100) mg/dL Lactic Acid 4.20 H* (0.7-2.0) mmol/L Calcium (8.4-10.2) mg/dL Total Creatine Kinase (55-170) units/L Total Protein (6.3-8.2) g/dL Albumin (3.9-5) g/dL Salicylates < 0.3 L (2.8-20.0) mg/dL Plasma/Serum Alcohol 0.22 H (0-0.07) gm% 11/02/16 11/02/16 Range/Units 03:22 05:15 MCH (28-32) pg RDW (13.2-15.2) % Plt Count (140-440) K/mm3 PT (12.2-14.9) Sec. INR (0.87-1.13) POC ABG pCO2 45.4 H (35-45) POC ABG pO2 417 H (80-105) Sodium (137-145) mmol/L Potassium (3.6-5.0) mmol/L BUN (9-20) mg/dL Glucose (75-100) mg/dL Lactic Acid 5.00 H* (0.7-2.0) mmol/L Calcium (8.4-10.2) mg/dL Total Creatine Kinase (55-170) units/L Total Protein (6.3-8.2) g/dL Albumin (3.9-5) g/dL Salicylates (2.8-20.0) mg/dL Plasma/Serum Alcohol (0-0.07) gm% - Imaging and Cardiology EKG: image reviewed Chest x-ray: image reviewed CT Scan - head: pending Assessment and Plan ct cervical spine pending Acute respiratory Failure Drug overdose/Suicide Attempt Alcohol intoxication Depression Start IV fluids, continue sedation Check cardiac enzymes, consult critical care Poison control was contacted, they recommend continue supportive care Psych evaluation when stable, patient is 1013 Start DVT prophylaxis
[2016-11-02] MEDS ORDERED: VALIUM IV ONE (06:28)
[2016-11-02 07:01] LABS: Creatine Kinase MB 4.7 ng/mL (0.0-4.0)
[2016-11-02 07:03] LABS: Creatine Kinase 288 units/L (55-170)
--- NOTE | 2016-11-02 07:04 | Cat Scan Report ---
FINAL REPORT PROCEDURE: CT HEAD/BRAIN WO CON TECHNIQUE: Computerized tomography of the head was performed without contrast material. HISTORY: ams OD COMPARISON: No prior studies are available for comparison. FINDINGS: Skull and scalp: Normal. Paranasal sinuses: Mild opacification of the ethmoid sinuses. Ventricles and subarachnoid spaces: Normal. Cerebrum: There is no evidence of an acute intracranial hemorrhage, hematoma, infarction, midline displacement or mass. Mild atrophy is noted.. Cerebellum and brainstem: No evidence of hemorrhage, acute infarction or mass. Vasculature: Normal. Comments: None. IMPRESSION: No evidence of an acute intracranial process. Mild atrophy.
--- NOTE | 2016-11-02 07:05 | Cat Scan Report ---
FINAL REPORT PROCEDURE: CT CERVICAL SPINE WO CON TECHNIQUE: Computerized tomography of the cervical spine was performed from the skull base to T1 without contrast material. HISTORY: ams OD COMPARISON: No prior studies are available for comparison. FINDINGS: The alignment of the vertebral segments is normal. The heights of vertebral bodies and the disc spaces are maintained. Mild spur formation off the vertebral bodies from the C4 through the C7 vertebral levels is noted. The spinal canal is adequate at all levels. No acute fracture or dislocation of the cervical spine. There is the endotracheal tube and nasogastric tube identified within the soft tissues anterior neck region. IMPRESSION: There is no evidence of an acute fracture dislocation of the cervical spine. Mild arthritis..
--- NOTE | 2016-11-02 07:06 | Admit Criteria Form ---
Admission Criteria Documentation: RESPIRATORY FAILURE GRG Clinical Indications for Admission to Inpatient Care (Place 'X' for any and all applicable criteria): Hospital admission is needed for appropriate care of the patient because of acute respiratory failure or insufficiency as indicated by ANY ONE of the following(1)(2)(3)(4)(5)(6)(7)(8): [ X]I. Mechanical ventilation needed (acute invasive or noninvasive) [ ]II. Severe ventilation deficit as indicated by ANY ONE of the following (9) [ ]a) Respiratory acidosis (pH less than 7.32 and partial pressure of carbon dioxide greater than 40 mm Hg (5.3 kPa)) [ ]b) Partial pressure of carbon dioxide greater than 44 mm Hg (5.9 kPa ) (new) [ ]c) Airflow measurements less than 25% of predicted (eg, peak expiratory flow rate less than 100 L/minute) [ ]d) Forced vital capacity less than 15 mL/kg of ideal body weight, or 50% decrease in vital capacity from baseline [ ]III. Noncardiac pulmonary edema not resolving with rapid emergency treatment (8) [ ]IV. Severe respiratory distress as indicated by ANY ONE of the following: [ ]a) Severe tachypnea (respiratory rate greater than 30, greater than 45 for 6-month-old, greater than 60 for ) [ ]b) Severe hypoxemia (partial pressure of oxygen less than 50 mm Hg ( 6.7 kPa) on greater than 50% oxygen or partial pressure of oxygen to FIO2 ratio less than 200) [ ]c) Mental status deterioration from respiratory disease [ ]V. Airway obstruction or inadequate protection [A](10)(11) The original [employer] content created by [employer] has been revised. The portions of the content which have been revised are identified through the use of italic text or in bold, and [employer] has neither reviewed nor approved the modified material. All other unmodified content is copyright [employer]. Please see references footnoted in the original [employer] edition 2016 Admission Criteria Met: Yes
[2016-11-02] MEDS: NACL 0.9% 1000 ML 1,000 ML IV SCH (07:10)
[2016-11-02] MEDS: LOVENOX SUB-Q SCH (10:06)
[2016-11-02 15:12] LABS: Creatine Kinase MB 10.1 ng/mL (0.0-4.0)
[2016-11-02 15:13] LABS: Creatine Kinase 422 units/L (55-170)
--- NOTE | 2016-11-02 18:10 | Event Note ---
Date: 11/02/16 Unable to complete for psychiatric evaluation Patient unresponsive
[2016-11-03 06:05] LABS: Basophils % (Auto) 0.7 % (0.0-1.8); Eosinophils % (Auto) 2.7 % (0.0-4.3); Hematocrit 38.8 % (35.5-45.6); Hemoglobin 12.4 gm/dl (11.8-15.2); Mean Corpuscular HGB Conc 32 % (32-34); Mean Corpuscular Hemoglobin 27 pg (28-32); Mean Corpuscular Volume 83 fl (84-94); Platelet Count 217 K/mm3 (140-440); Red Blood Count 4.66 M/mm3 (3.65-5.03); Red Cell Distribution Width 15.8 % (13.2-15.2); White Blood Count 8.3 K/mm3 (4.5-11.0)
[2016-11-03 06:14] LABS: Anion Gap 16 mmol/L; Blood Urea Nitrogen 9 mg/dL (9-20); Calcium 8.2 mg/dL (8.4-10.2); Carbon Dioxide 27 mmol/L (22-30); Chloride 102.9 mmol/L (98-107); Glucose 86 mg/dL (75-100); Sodium 141 mmol/L (137-145)
[2016-11-03 06:17] LABS: Potassium 4.6 mmol/L (3.6-5.0)
[2016-11-03] MEDS ORDERED: SODIUM BICARBONATE IV ONE (10:02)
--- NOTE | 2016-11-03 10:02 | Progress Note ---
Assessment and Plan Assessment and plan: This is a 55-year-old man with a history of depression came to the emergency room and told the nurse that he overdosed on Seroquel. The patient was found to be very lethargic and was brought emergently back into the emergency room where he was intubated. Acute hypoxic respiratory failure Patient has now been extubated, continue supplemental oxygen by nasal cannula, continue to wean off oxygen Metabolic encephalopathy Most likely due to drug overdose, continue supportive care Suicide attempt, major depression Continue 1013, mental health has been consulted Poison control was contacted, they recommend continue supportive care UDS only was positive for alcohol, otherwise negative Alcohol intoxication and withdrawal Continue [facility] protocol DVT prophylaxis, Lovenox History Interval history: Patient was just extubated, he still obtunded, on nasal cannula Hospitalist Physical - Physical exam Narrative exam: General: Patient appears well in no distress HEENT: MMM, EOMI cardiac: S1-S2 heard lungs: clear to auscultation, abdomen: soft, nontender, nondistended bowel sounds positive extremities: no edema clubbing or cyanosis Skin: no rash or lesion Neuro: no focal deficits Psych: appears depressed, mood is depressed - Constitutional Vitals: Temp Pulse Resp BP Pulse Ox 98.8 F 113 H 12 110/84 96 11/02/16 20:05 11/02/16 23:30 11/02/16 23:30 11/02/16 19:50 11/02/16 23:30 Results - Labs CBC & Chem 7: 11/03/16 05:12 11/03/16 05:12 Labs: Laboratory Last Values WBC 8.3 K/mm3 (4.5-11.0) 11/03/16 05:12 RBC 4.66 M/mm3 (3.65-5.03) 11/03/16 05:12 Hgb 12.4 gm/dl (11.8-15.2) 11/03/16 05:12 Hct 38.8 % (35.5-45.6) 11/03/16 05:12 MCV 83 fl (84-94) L 11/03/16 05:12 MCH 27 pg (28-32) L 11/03/16 05:12 MCHC 32 % (32-34) 11/03/16 05:12 RDW 15.8 % (13.2-15.2) H 11/03/16 05:12 Plt Count 217 K/mm3 (140-440) 11/03/16 05:12 Lymph % (Auto) 18.5 % (13.4-35.0) 11/03/16 05:12 Evans % (Auto) 10.1 % (0.0-7.3) H 11/03/16 05:12 Eos % (Auto) 2.7 % (0.0-4.3) 11/03/16 05:12 Baso % (Auto) 0.7 % (0.0-1.8) 11/03/16 05:12 Lymph # 1.5 K/mm3 (1.2-5.4) 11/03/16 05:12 Evans # 0.8 K/mm3 (0.0-0.8) 11/03/16 05:12 Eos # 0.2 K/mm3 (0.0-0.4) 11/03/16 05:12 Baso # 0.1 K/mm3 (0.0-0.1) 11/03/16 05:12 Seg Neutrophils % 68.0 % (40.0-70.0) 11/03/16 05:12 Seg Neutrophils # 5.7 K/mm3 (1.8-7.7) 11/03/16 05:12 PT 15.9 Sec. (12.2-14.9) H 11/02/16 02:50 INR 1.28 (0.87-1.13) H 11/02/16 02:50 POC ABG pH 7.447 (7.35-7.45) 11/02/16 03:22 POC ABG pCO2 45.4 (35-45) H 11/02/16 03:22 POC ABG pO2 417 (80-105) H 11/02/16 03:22 POC ABG HCO3 31.3 11/02/16 03:22 POC ABG Total CO2 33 11/02/16 03:22 POC ABG O2 Sat 100 11/02/16 03:22 POC ABG Base Excess 7 11/02/16 03:22 FiO2 100 % 11/02/16 03:22 Sodium 141 mmol/L (137-145) 11/03/16 05:12 Potassium 4.6 mmol/L (3.6-5.0) D 11/03/16 05:12 Chloride 102.9 mmol/L (98-107) 11/03/16 05:12 Carbon Dioxide 27 mmol/L (22-30) 11/03/16 05:12 Anion Gap 16 mmol/L 11/03/16 05:12 BUN 9 mg/dL (9-20) 11/03/16 05:12 Creatinine 0.6 mg/dL (0.8-1.5) L 11/03/16 05:12 Estimated GFR > 60 ml/min 11/03/16 05:12 BUN/Creatinine Ratio 15.00 % 11/03/16 05:12 Glucose 86 mg/dL (75-100) 11/03/16 05:12 POC Glucose 140 (70-105) H 11/02/16 02:11 Lactic Acid 5.00 mmol/L (0.7-2.0) H* 11/02/16 05:15 Calcium 8.2 mg/dL (8.4-10.2) L 11/03/16 05:12 Magnesium 1.70 mg/dL (1.7-2.3) 11/02/16 02:50 Total Bilirubin 0.30 mg/dL (0.1-1.2) 11/02/16 02:50 AST 16 units/L (5-40) 11/02/16 02:50 ALT 16 units/L (7-56) 11/02/16 02:50 Alkaline Phosphatase 43 units/L (35-129) 11/02/16 02:50 Ammonia 57.0 umol/L (25-60) 11/02/16 02:50 Total Creatine Kinase 422 units/L (55-170) H 11/02/16 14:33 CK-MB (CK-2) 10.1 ng/mL (0.0-4.0) H 11/02/16 14:33 CK-MB (CK-2) Rel Index 2.3 (0-4) 11/02/16 14:33 Troponin T < 0.010 ng/mL (0.00-0.029) 11/02/16 14:33 Total Protein 5.5 g/dL (6.3-8.2) L 11/02/16 02:50 Albumin 3.0 g/dL (3.9-5) L 11/02/16 02:50 Albumin/Globulin Ratio 1.2 % 11/02/16 02:50 Salicylates < 0.3 mg/dL (2.8-20.0) L 11/02/16 06:16 Urine Opiates Screen Presumptive negative 11/02/16 03:49 Urine Methadone Screen Presumptive negative 11/02/16 03:49 Acetaminophen < 15.0 ug/mL (10.0-30.0) 11/02/16 06:16 Ur Barbiturates Screen Presumptive negative 11/02/16 03:49 Ur Phencyclidine Scrn Presumptive negative 11/02/16 03:49 Ur Amphetamines Screen Presumptive negative 11/02/16 03:49 U Benzodiazepines Scrn Presumptive negative 11/02/16 03:49 Urine Cocaine Screen Presumptive negative 11/02/16 03:49 U Marijuana (THC) Screen Presumptive negative 11/02/16 03:49 Drugs of Abuse Note Disclamer 11/02/16 03:49 Plasma/Serum Alcohol 0.22 gm% (0-0.07) H 11/02/16 02:50 - Imaging and Cardiology CT Scan - head: image reviewed (no acute abnormalities on CT head or CT C-spine)
[2016-11-03] MEDS: NACL 0.9% 1000 ML 1,000 ML IV SCH ×2 (10:54→19:11)
[2016-11-03] MEDS: LOVENOX SUB-Q SCH (11:04)
--- NOTE | 2016-11-03 16:03 | Consultation ---
History of Present Illness - Reason for Consult Consult date: 11/03/16 Reason for consult: Mental [place] Evaluation Requesting physician: JELENA JOE - Chief Complaint Chief complaint: "I want to stop drinking alcohol" - History of Present Psychiatric Illness This is a 55-year-old male. The patient has a history of alcohol abuse with psychotic features. The patient initially presents to the ER complaining of suicidality and indicating that he overdosed on Seroquel. Today patient is calm and cooperative during assessment. He stated that he wanted to "" when he took the Seroquel pills prior to coming to [facility]. He could not tell me how many pills he took. He stated that he is dealing with life stressors (unemployed, relationship issues, and of a family member). He stated that he self medicate with beer. He stated that he drink 3 to 6 beers a day for the past 20+ years. He stated that he is currently suicidal and would use pills or drink himself to if he had the chance. Patient stated that he drink beer to help with sleep. He stated that he has always struggled with insomnia. He denies HI's, AVH's, and a poor appetite. He admit to depression symptoms of sadness and hopelessness. He denies recreational drug use. Patient stated that he has attempted suicide in the past. Medications and Allergies Allergies Allergy/AdvReac Type Severity Reaction Status Date / Time No Known Allergies Allergy Verified 09/30/16 05:45 Home Medications Medication Instructions Recorded Confirmed Last Taken Type Unobtainable 11/02/16 11/02/16 Unknown History Active Meds: Active Medications Acetaminophen (Tylenol) 650 mg PO Q4H PRN PRN Reason: Pain MILD(1-3)/Fever >100.5/MCDONNELL Acetaminophen (Tylenol) 650 mg HI Q4H PRN PRN Reason: Pain MILD(1-3)/Fever >100.5/MCDONNELL Enoxaparin Sodium (Lovenox) 40 mg SUB-Q QDAY [facility] Last Admin: 11/03/16 11:04 Dose: 40 mg Hydrophilic Ointment (Vaseline Lip Therapy) 1 applic TP Q2HR PRN PRN Reason: Dry Lips Sodium Chloride (Nacl 0.9% 1000 Ml) 1,000 mls @ 150 mls/hr IV DIRECT [facility] Last Admin: 11/03/16 10:54 Dose: 150 mls/hr Lorazepam (Ativan) 2 mg IV Q1H PRN PRN Reason: CIWA-Ar 8-15 Lorazepam (Ativan) 4 mg IV Q1H PRN PRN Reason: CIWA-Ar 16-25 Lorazepam (Ativan) 4 mg IV Q15MIN PRN PRN Reason: CIWA-Ar >25 Stop: 11/07/16 18:16 Multi-Ingred Cream/Lotion/Oil/Oint (Artificial Tears Ophth Oint) 1 applic OU Q4HR PRN PRN Reason: Dry Eye(s) Ondansetron HCl (Zofran) 4 mg IV Q8H PRN PRN Reason: N/V unrelieved by Phong Past psychiatric history - Past Medical History Past Medical History: No medical history Past Surgical History: No surgical history - past Psychiatric treatment and history Psych: Depression psychiatric treatment history: Multiple inpatient psy setting. Patient stated that his brother has Bipolar. - Social History Social history: lives with family, other (High School graduate) Mental Status Exam - Vital signs Last Vital Signs Temp 99.4 F 11/03/16 15:49 Pulse 97 H 11/03/16 15:49 Resp 18 11/03/16 15:49 BP 131/77 11/03/16 15:49 Pulse Ox 97 11/03/16 15:49 - Exam Narrative exam: ROS: (+) depression MSE: Appearance: cooperative, calm Behavior: good eye contact Speech: regular rate and tone Mood: "a little down" Affect: congruent to mood Thought Process: linear Thought Content: denies SI/HI's and AVH's Motor Activity: lying in bed Cognition: a/ox 3 Insight: fair Judgment: poor Results Result Diagrams: 11/03/16 05:12 11/03/16 05:12 Abnormal lab results 11/03/16 11/03/16 Range/Units 05:12 05:12 MCV 83 L (84-94) fl MCH 27 L (28-32) pg RDW 15.8 H (13.2-15.2) % Falls % (Auto) 10.1 H (0.0-7.3) % Creatinine 0.6 L (0.8-1.5) mg/dL Calcium 8.2 L (8.4-10.2) mg/dL All other labs normal. Assessment and Plan Assessment and plan: Impression: Alcohol Use DO, MDD severe type. Today patient is calm and cooperative during assessment. He stated that he wanted to "" when he took the Seroquel pills prior to coming to [facility]. He could not tell me how many pills he took. He stated that he is dealing with life stressors (unemployed, relationship issues, and of a family member). He stated that he self medicate with beer. He stated that he drink 3 to 6 beers a day for the past 20+ years. He stated that he is currently suicidal and would use pills or drink himself to if he had the chance. DD: R/O Bipolar Recommendation/Plan: Continue 1013 with placement to inpatient psy services. Start Remeron 15 mg PO HS for depression/sleep.
[2016-11-03] MEDS: REMERON PO SCH (22:34)
[2016-11-04] MEDS: NACL 0.9% 1000 ML 1,000 ML IV SCH ×4 (02:03→21:39)
--- NOTE | 2016-11-04 09:51 | Progress Note ---
Assessment and Plan Assessment and plan: This is a 55-year-old man with a history of depression came to the emergency room and told the nurse that he overdosed on Seroquel. The patient was found to be very lethargic and was brought emergently back into the emergency room where he was intubated. Acute hypoxic respiratory failure -now resolve Patient was since extubated, is now weaned to RA Metabolic encephalopathy now resolved Most likely due to drug overdose, continue supportive care Suicide attempt, major depression Continue 1013, mental health has been consulted Poison control was contacted, they recommend continue supportive care UDS only was positive for alcohol, otherwise negative Planned to acute psych facility Alcohol intoxication and withdrawal Continue [facility] protocol URTI cepacol, phenol spray and cough syrup, support meds ordered DVT prophylaxis, Lovenox MEDICALLY OPTIMIZED FOR TRANSFER TO ACUTE PSYCH FACILITY History Interval history: still feels depressed, c/o cough, sore throat, and trouble sleeping Hospitalist Physical - Physical exam Narrative exam: General: Patient appears well in no distress HEENT: MMM, EOMI cardiac: S1-S2 heard lungs: clear to auscultation, abdomen: soft, nontender, nondistended bowel sounds positive extremities: no edema clubbing or cyanosis Skin: no rash or lesion Neuro: no focal deficits Psych: appears depressed, mood is depressed - Constitutional Vitals: Temp Pulse Resp BP Pulse Ox 99.6 F 89 12 149/84 98 11/04/16 00:27 11/04/16 00:27 11/04/16 00:27 11/04/16 00:27 11/04/16 00:27 Results - Labs CBC & Chem 7: 11/03/16 05:12 11/03/16 05:12 Labs: Laboratory Last Values WBC 8.3 K/mm3 (4.5-11.0) 11/03/16 05:12 RBC 4.66 M/mm3 (3.65-5.03) 11/03/16 05:12 Hgb 12.4 gm/dl (11.8-15.2) 11/03/16 05:12 Hct 38.8 % (35.5-45.6) 11/03/16 05:12 MCV 83 fl (84-94) L 11/03/16 05:12 MCH 27 pg (28-32) L 11/03/16 05:12 MCHC 32 % (32-34) 11/03/16 05:12 RDW 15.8 % (13.2-15.2) H 11/03/16 05:12 Plt Count 217 K/mm3 (140-440) 11/03/16 05:12 Lymph % (Auto) 18.5 % (13.4-35.0) 11/03/16 05:12 Mcdonald % (Auto) 10.1 % (0.0-7.3) H 11/03/16 05:12 Eos % (Auto) 2.7 % (0.0-4.3) 11/03/16 05:12 Baso % (Auto) 0.7 % (0.0-1.8) 11/03/16 05:12 Lymph # 1.5 K/mm3 (1.2-5.4) 11/03/16 05:12 Mcdonald # 0.8 K/mm3 (0.0-0.8) 11/03/16 05:12 Eos # 0.2 K/mm3 (0.0-0.4) 11/03/16 05:12 Baso # 0.1 K/mm3 (0.0-0.1) 11/03/16 05:12 Seg Neutrophils % 68.0 % (40.0-70.0) 11/03/16 05:12 Seg Neutrophils # 5.7 K/mm3 (1.8-7.7) 11/03/16 05:12 PT 15.9 Sec. (12.2-14.9) H 11/02/16 02:50 INR 1.28 (0.87-1.13) H 11/02/16 02:50 POC ABG pH 7.447 (7.35-7.45) 11/02/16 03:22 POC ABG pCO2 45.4 (35-45) H 11/02/16 03:22 POC ABG pO2 417 (80-105) H 11/02/16 03:22 POC ABG HCO3 31.3 11/02/16 03:22 POC ABG Total CO2 33 11/02/16 03:22 POC ABG O2 Sat 100 11/02/16 03:22 POC ABG Base Excess 7 11/02/16 03:22 FiO2 100 % 11/02/16 03:22 Sodium 141 mmol/L (137-145) 11/03/16 05:12 Potassium 4.6 mmol/L (3.6-5.0) D 11/03/16 05:12 Chloride 102.9 mmol/L (98-107) 11/03/16 05:12 Carbon Dioxide 27 mmol/L (22-30) 11/03/16 05:12 Anion Gap 16 mmol/L 11/03/16 05:12 BUN 9 mg/dL (9-20) 11/03/16 05:12 Creatinine 0.6 mg/dL (0.8-1.5) L 11/03/16 05:12 Estimated GFR > 60 ml/min 11/03/16 05:12 BUN/Creatinine Ratio 15.00 % 11/03/16 05:12 Glucose 86 mg/dL (75-100) 11/03/16 05:12 POC Glucose 140 (70-105) H 11/02/16 02:11 Lactic Acid 5.00 mmol/L (0.7-2.0) H* 11/02/16 05:15 Calcium 8.2 mg/dL (8.4-10.2) L 11/03/16 05:12 Magnesium 1.70 mg/dL (1.7-2.3) 11/02/16 02:50 Total Bilirubin 0.30 mg/dL (0.1-1.2) 11/02/16 02:50 AST 16 units/L (5-40) 11/02/16 02:50 ALT 16 units/L (7-56) 11/02/16 02:50 Alkaline Phosphatase 43 units/L (35-129) 11/02/16 02:50 Ammonia 57.0 umol/L (25-60) 11/02/16 02:50 Total Creatine Kinase 422 units/L (55-170) H 11/02/16 14:33 CK-MB (CK-2) 10.1 ng/mL (0.0-4.0) H 11/02/16 14:33 CK-MB (CK-2) Rel Index 2.3 (0-4) 11/02/16 14:33 Troponin T < 0.010 ng/mL (0.00-0.029) 11/02/16 14:33 Total Protein 5.5 g/dL (6.3-8.2) L 11/02/16 02:50 Albumin 3.0 g/dL (3.9-5) L 11/02/16 02:50 Albumin/Globulin Ratio 1.2 % 11/02/16 02:50 Salicylates < 0.3 mg/dL (2.8-20.0) L 11/02/16 06:16 Urine Opiates Screen Presumptive negative 11/02/16 03:49 Urine Methadone Screen Presumptive negative 11/02/16 03:49 Acetaminophen < 15.0 ug/mL (10.0-30.0) 11/02/16 06:16 Ur Barbiturates Screen Presumptive negative 11/02/16 03:49 Ur Phencyclidine Scrn Presumptive negative 11/02/16 03:49 Ur Amphetamines Screen Presumptive negative 11/02/16 03:49 U Benzodiazepines Scrn Presumptive negative 11/02/16 03:49 Urine Cocaine Screen Presumptive negative 11/02/16 03:49 U Marijuana (THC) Screen Presumptive negative 11/02/16 03:49 Drugs of Abuse Note Disclamer 11/02/16 03:49 Plasma/Serum Alcohol 0.22 gm% (0-0.07) H 11/02/16 02:50
--- NOTE | 2016-11-04 09:56 | Discharge Summary ---
Providers - Providers Date of Admission: 11/02/16 05:57 Attending physician: ASHANTI HINSON MD Primary care physician: [employer]IO [employer] WORKER Hospitalization Condition: Critical Hospital course: This is a 55-year-old man with a history of depression came to the emergency room and told the nurse that he overdosed on Seroquel. The patient was found to be very lethargic and was brought emergently back into the emergency room where he was intubated. He was initially obtunded when he was admitted, he had acute hypoxic respiratory failure, was intubated, he was weaned off the ventilator weaned to nasal Oxygen and subsequently was on room air and breathing well. He was seen by psychiatry and his meds were optimized, he was initially on 1013, but as was followed along by psychiatry team who was admitted to the longer be suicidal nor not be a risk to himself. Was put on appropriate psychiatric medications, was counseled about compliance, he verbalized understanding. Was also counseled about alcohol abuse. Patient is being discharged home in improved condition. Discharge diagnoses Acute hypoxic respiratory failure Metabolic encephalopathy Seroquel overdose Suicide attempt, major depression Alcohol intoxication and withdrawal Disposition: DC-01 TO HOME OR SELFCARE Time spent for discharge: 35 minutes Core Measure Documentation - Palliative Care Palliative Care/ Comfort Measures: Not Applicable - Core Measures Any of the following diagnoses?: none Exam - Constitutional Vitals: Temp Pulse Resp BP Pulse Ox 99.6 F 89 12 149/84 98 11/04/16 00:27 11/04/16 00:27 11/04/16 00:27 11/04/16 00:27 11/04/16 00:27 General appearance: Present: no acute distress, well-nourished - EENT Eyes: Present: PERRL ENT: hearing intact, clear oral mucosa - Neck Neck: Present: supple, normal ROM - Respiratory Respiratory effort: normal Respiratory: bilateral: CTA - Cardiovascular Heart Sounds: Present: S1 & S2. Absent: rub, click - Extremities Extremities: pulses symmetrical, No edema Peripheral Pulses: within normal limits - Abdominal General gastrointestinal: Present: soft, non-tender, non-distended, normal bowel sounds Male genitourinary: Present: normal - Integumentary Integumentary: Present: clear, warm, dry - Musculoskeletal Musculoskeletal: gait normal, strength equal bilaterally - Psychiatric Psychiatric: memory intact, cooperative, depressed - Neurologic Neurologic: CNII-XII intact, moves all extremities Plan Follow up with: PRIMARY CARE, [Primary Care Provider] - 3-5 Days Prescriptions: Mirtazapine [Remeron] 15 mg PO QHS #30 tablet
--- NOTE | 2016-11-04 10:44 | XRay Report ---
ROUTINE CHEST, TWO VIEWS: HISTORY: Respiratory failure. The patient has been extubated since 11/02/16. The nasogastric tube has been removed. Heart size and pulmonary vascularity are within normal limits. The lungs are generally clear. There is suggestion of a small pleural effusion on the lateral image but the side is indeterminate. There is no obvious pneumonia. No pneumothorax. IMPRESSION: Small pleural effusion.
[2016-11-04] MEDS: LOVENOX SUB-Q SCH (11:37)
--- NOTE | 2016-11-04 16:36 | Progress Note ---
Subjective - Reason for Consult Consult date: 11/04/16 Reason for consult: psychiatric follow up - Chief Complaint Chief complaint: "I want to hurt myself" This is a 55-year-old male. The patient has a history of alcohol abuse with psychotic features. The patient initially presents to the ER complaining of suicidality and indicating that he overdosed on Seroquel. He required intubation for a short time. Today patient is calm and cooperative during assessment. He stated that he wanted to "" when he took the Seroquel pills prior to coming to [facility]. He could not tell me how many pills he took. He stated that he is dealing with life stressors (unemployed, relationship issues, and of a family member). He stated that he self medicates with beer. He stated that he drink 3 to 6 beers a day for the past 20+ years. He stated that he is currently suicidal and would use pills or drink himself to if he had the chance. He stated that he has always struggled with insomnia. He denies HI's, AVH's, and a poor appetite. He reports depression symptoms of sadness and hopelessness. Patient is suicidal and states he will hurt himself if he can. Mental Status Exam - Vital signs Last Vital Signs Temp 98.1 F 11/04/16 07:40 Pulse 84 11/04/16 07:40 Resp 20 11/04/16 07:40 BP 150/81 11/04/16 07:40 Pulse Ox 91 11/04/16 07:40 - Exam Narrative exam: ROS: (+) depression (+) SI MSE: Appearance: cooperative, calm Behavior: good eye contact Speech: regular rate and tone Mood: depressed Affect: congruent to mood, blunted Thought Process: linear Thought Content: reports SI. No HI's and AVH's Motor Activity: lying in bed Cognition: a/ox 3 Insight: fair Judgment: poor Assessment and Plan Impression: Alcohol Use DO, MDD severe type. Suicide attempt with ingestion of alcohol and unknown amount of Seroquel DD: R/O Bipolar Recommendation/Plan: Continue 1013 with placement to inpatient psy services. Continue Remeron 15 mg PO HS for depression/sleep. Add benadryl 50mg hs for sleep.
[2016-11-04] MEDS: REMERON PO SCH (21:40)
[2016-11-04] MEDS ORDERED: BENADRYL PO SCH (22:00)
[2016-11-05] MEDS ORDERED: ROBITUSSIN PO PRN (01:36)
[2016-11-05] MEDS ORDERED: AFRIN NS PRN (01:38)
[2016-11-05] MEDS: NACL 0.9% 1000 ML 1,000 ML IV SCH (04:07)
[2016-11-05] MEDS: KCL 10MEQ/100ML 10 MEQ/100 ML BAG IV SCH (06:51)
[2016-11-05] MEDS: LOVENOX SUB-Q SCH (10:04)
--- NOTE | 2016-11-05 10:37 | Progress Note ---
Assessment and Plan Assessment and plan: This is a 55-year-old man with a history of depression came to the emergency room and told the nurse that he overdosed on Seroquel. The patient was found to be very lethargic and was brought emergently back into the emergency room where he was intubated. Acute hypoxic respiratory failure -now resolved Patient was since extubated, is now weaned to RA Metabolic encephalopathy now resolved Most likely due to drug overdose, continue supportive care Suicide attempt, major depression Continue 1013, mental health has been consulted Poison control was contacted, they recommend continue supportive care UDS only was positive for alcohol, otherwise negative Planned to acute psych facility Alcohol intoxication and withdrawal Continue CIIN protocol URTI cepacol, phenol spray and cough syrup, support meds ordered DVT prophylaxis, Lovenox MEDICALLY OPTIMIZED FOR TRANSFER TO ACUTE PSYCH FACILITY History Interval history: still feels depressed, c/o cough, sore throat, and trouble sleeping Hospitalist Physical - Physical exam Narrative exam: General: Patient appears well in no distress HEENT: MMM, EOMI cardiac: S1-S2 heard lungs: clear to auscultation, abdomen: soft, nontender, nondistended bowel sounds positive extremities: no edema clubbing or cyanosis Skin: no rash or lesion Neuro: no focal deficits Psych: appears depressed, mood is depressed - Constitutional Vitals: Temp Pulse Resp BP Pulse Ox 98.8 F 76 18 158/86 96 11/05/16 08:00 11/05/16 08:00 11/05/16 08:00 11/05/16 08:00 11/05/16 08:00 General appearance: Present: no acute distress, well-nourished Results - Labs CBC & Chem 7: 11/03/16 05:12 11/03/16 05:12 Labs: Laboratory Last Values WBC 8.3 K/mm3 (4.5-11.0) 11/03/16 05:12 RBC 4.66 M/mm3 (3.65-5.03) 11/03/16 05:12 Hgb 12.4 gm/dl (11.8-15.2) 11/03/16 05:12 Hct 38.8 % (35.5-45.6) 11/03/16 05:12 MCV 83 fl (84-94) L 11/03/16 05:12 MCH 27 pg (28-32) L 11/03/16 05:12 MCHC 32 % (32-34) 11/03/16 05:12 RDW 15.8 % (13.2-15.2) H 11/03/16 05:12 Plt Count 217 K/mm3 (140-440) 11/03/16 05:12 Lymph % (Auto) 18.5 % (13.4-35.0) 11/03/16 05:12 [place] % (Auto) 10.1 % (0.0-7.3) H 11/03/16 05:12 Eos % (Auto) 2.7 % (0.0-4.3) 11/03/16 05:12 Baso % (Auto) 0.7 % (0.0-1.8) 11/03/16 05:12 Lymph # 1.5 K/mm3 (1.2-5.4) 11/03/16 05:12 [place] # 0.8 K/mm3 (0.0-0.8) 11/03/16 05:12 Eos # 0.2 K/mm3 (0.0-0.4) 11/03/16 05:12 Baso # 0.1 K/mm3 (0.0-0.1) 11/03/16 05:12 Seg Neutrophils % 68.0 % (40.0-70.0) 11/03/16 05:12 Seg Neutrophils # 5.7 K/mm3 (1.8-7.7) 11/03/16 05:12 PT 15.9 Sec. (12.2-14.9) H 11/02/16 02:50 INR 1.28 (0.87-1.13) H 11/02/16 02:50 POC ABG pH 7.447 (7.35-7.45) 11/02/16 03:22 POC ABG pCO2 45.4 (35-45) H 11/02/16 03:22 POC ABG pO2 417 (80-105) H 11/02/16 03:22 POC ABG HCO3 31.3 11/02/16 03:22 POC ABG Total CO2 33 11/02/16 03:22 POC ABG O2 Sat 100 11/02/16 03:22 POC ABG Base Excess 7 11/02/16 03:22 FiO2 100 % 11/02/16 03:22 Sodium 141 mmol/L (137-145) 11/03/16 05:12 Potassium 4.6 mmol/L (3.6-5.0) D 11/03/16 05:12 Chloride 102.9 mmol/L (98-107) 11/03/16 05:12 Carbon Dioxide 27 mmol/L (22-30) 11/03/16 05:12 Anion Gap 16 mmol/L 11/03/16 05:12 BUN 9 mg/dL (9-20) 11/03/16 05:12 Creatinine 0.6 mg/dL (0.8-1.5) L 11/03/16 05:12 Estimated GFR > 60 ml/min 11/03/16 05:12 BUN/Creatinine Ratio 15.00 % 11/03/16 05:12 Glucose 86 mg/dL (75-100) 11/03/16 05:12 POC Glucose 140 (70-105) H 11/02/16 02:11 Lactic Acid 5.00 mmol/L (0.7-2.0) H* 11/02/16 05:15 Calcium 8.2 mg/dL (8.4-10.2) L 11/03/16 05:12 Magnesium 1.70 mg/dL (1.7-2.3) 11/02/16 02:50 Total Bilirubin 0.30 mg/dL (0.1-1.2) 11/02/16 02:50 AST 16 units/L (5-40) 11/02/16 02:50 ALT 16 units/L (7-56) 11/02/16 02:50 Alkaline Phosphatase 43 units/L (35-129) 11/02/16 02:50 Ammonia 57.0 umol/L (25-60) 11/02/16 02:50 Total Creatine Kinase 422 units/L (55-170) H 11/02/16 14:33 CK-MB (CK-2) 10.1 ng/mL (0.0-4.0) H 11/02/16 14:33 CK-MB (CK-2) Rel Index 2.3 (0-4) 11/02/16 14:33 Troponin T < 0.010 ng/mL (0.00-0.029) 11/02/16 14:33 Total Protein 5.5 g/dL (6.3-8.2) L 11/02/16 02:50 Albumin 3.0 g/dL (3.9-5) L 11/02/16 02:50 Albumin/Globulin Ratio 1.2 % 11/02/16 02:50 Salicylates < 0.3 mg/dL (2.8-20.0) L 11/02/16 06:16 Urine Opiates Screen Presumptive negative 11/02/16 03:49 Urine Methadone Screen Presumptive negative 11/02/16 03:49 Acetaminophen < 15.0 ug/mL (10.0-30.0) 11/02/16 06:16 Ur Barbiturates Screen Presumptive negative 11/02/16 03:49 Ur Phencyclidine Scrn Presumptive negative 11/02/16 03:49 Ur Amphetamines Screen Presumptive negative 11/02/16 03:49 U Benzodiazepines Scrn Presumptive negative 11/02/16 03:49 Urine Cocaine Screen Presumptive negative 11/02/16 03:49 U Marijuana (THC) Screen Presumptive negative 11/02/16 03:49 Drugs of Abuse Note Disclamer 11/02/16 03:49 Plasma/Serum Alcohol 0.22 gm% (0-0.07) H 11/02/16 02:50
--- NOTE | 2016-11-05 14:19 | Progress Note ---
Subjective - Reason for Consult Consult date: 11/05/16 Reason for consult: rescind 1013, depression, homeless Mental Status Exam - Vital signs Last Vital Signs Temp 98.8 F 11/05/16 08:00 Pulse 76 11/05/16 08:00 Resp 18 11/05/16 08:00 BP 158/86 11/05/16 08:00 Pulse Ox 96 11/05/16 08:00 Assessment and Plan I. This screening and assessment is based on information collected from the following sources: II. SUICIDE RISK SCREENING (within last 30 days): A.) Suicidal thoughts/behaviors: Recent report to overdose on drugs and other substances. SUICIDE RISK ASSESSMENT III. FACTORS THAT INCREASE RISK: A.) Demographic and Substance Use Factors: Recent substance abuse and intoxication B.) Current/Recent Factors (within past 3 months): Psychosocial/Environmental Factors: Homelessness Physical Illness: None Cognitive/Psychological Factors: None C.) Historical Factors: Previous psychosocial stressors exacerbating his mood symptoms with comorbid substance abuse. D.) Diagnostic/Symptom/Treatment Factors: Currently poor access to mental health care due to lack of insurance E.) Acute Risk Factor Severity (DESC; MILD/MOD/SEVERE) Other factors for this individual that increase risk: IV. FACTORS THAT DECREASE RISK: Resilience/Protective Factors: Intermittent psychosocial supports Other factors for this individual that decrease risk: No previous attempt history noted V. Clinician's Formulation of Risk and Determination of level of Care: This is a 55-year-old male who is having both chronic and acute stressors which have brought him to the ER. Just prior to the ER presentation patient was intoxicated and verbalized desire to harm himself. Since being in the ER patient has inconsistently denied the desire to harm himself. He has been on the inpatient floor for over 3 days and has not shown any gestures. His SI has been inconsistent and conditional. Furthermore, patient has been placed on several medications to address his underlying mood disorder and insomnia. Additionally, patient is no longer acutely intoxicated and has been abstinent from substances throughout the duration of his hospital stay. Consequently, it is the opinion of the treatment team that the patient is at low risk at the current time given the above interventions that were implemented in his care. He is homeless and he will require some supportive services regarding that psychosocial stressor. Estimation of Imminent Risk: Low due to the above explanation Determination of Level of Care based on Suicide Risk: Outpatient follow-up and the [facility] as the patient has had inpatient level of care on the floor for 3 days with reinitiation of medications to address his underlying depression and insomnia. Nevertheless, it appears most of his mood symptoms are likely related to acute intoxication and abstinence has improved his mood and will likely continue to improve his mood as well as his insomnia if he remains abstinent from substances. Furthermore, patient has had consistently denied the desire to harm himself over the past 24 hours. Additionally, those thoughts were ego-dystonic and nature to begin with the patient had no intent or clear plan to execute on those thoughts. Narrative description of clinical reasoning. (This must be completed on all patients): . Plan and Interventions based on Suicide Risk: This patient will likely be stepped down to an outpatient mental health center in the community upon discharge and follow-up within 7 days of his discharge from the hospital. VII. Discharge/After Hours Support Plan: Patient can return back to the ER, call 911 or crisis line if symptoms of depression, anxiety, suicidality return. General Appearance: casually dressed, no acute distress Sensorium/Consciousness: alert and responding to external stimuli; clear Orientation: person, place, time and situation Eye Contact: Fair Attitude / Behavior: Cooperative Psychomotor & Musculoskeletal Activity: WNL Mood: ok Affect: constricted, limited range Speech / Language: fluent, with normal rate/rhythm/tone Thought Processes: organized, logical, linear Thought Content: no SI, no HI Perception: no AVH Insight: Improved Judgement: Improved Capacity for ADLs: independent Plan: At the current time patient is not meeting criteria to continue the patient on an involuntary psychiatric hold Patient does have acute psychosocial stressors in the form of being homeless and requires services to help him with this matter It is recommended the patient can follow with outpatient services with a prescription for his psychotropic medications to help him with his depression and insomnia
[2016-11-05] MEDS ORDERED: VISTARIL PO SCH (15:00)
[2016-11-05 16:36] VITALS: BP 132/90
== END 2016-11-05 17:44 | disposition home or self-care (01) | DRG 917 ==
LOC: EEVIPCON 01:54 → ED 01:54 → CC1 05:57 → 3A 18:59
PROVIDERS: ADMIT Internal Medicine; ATTEND Internal Medicine
PROC: 4A033R1 Measurement of Arterial Saturation, Peripheral, Percutaneous Approach (ICD-10-PCS; principal; 2016-11-02)
PROC: 5A1935Z Respiratory Ventilation, Less than 24 Consecutive Hours (ICD-10-PCS; 2016-11-02)
PROC: 0BH17EZ Insertion of Endotracheal Airway into Trachea, Via Natural or Artificial Opening (ICD-10-PCS; 2016-11-02)
DX: T43.592A Poisoning by other antipsychotics and neuroleptics, intentional self-harm, initial encounter (principal); J96.01 Acute respiratory failure with hypoxia; G93.41 Metabolic encephalopathy; F10.239 Alcohol dependence with withdrawal, unspecified; F32.9 Major depressive disorder, single episode, unspecified; T14.91 Suicide attempt; F10.229 Alcohol dependence with intoxication, unspecified; J06.9 Acute upper respiratory infection, unspecified; Y92.89 Other specified places as the place of occurrence of the external cause; Z59.0 Homelessness; Z91.19 Patient's noncompliance with other medical treatment and regimen; Z71.89 Other specified counseling; Z71.41 Alcohol abuse counseling and surveillance of alcoholic
CPT/HCPCS: 36415; 70450; 71010; 71020; 72125; 80048; 80053; 80307; 80320; 82140; 82550; 82553; 82803; 82962; 83735; 84484; 85025; 85027; 85610; 87070; 87205; 93005; 93010; 94002; 94003; 96361; 96374; 96375; 99285; G0480; J1650; J2060; J3010; J3360; J3480; J7030; Q0177

== ENCOUNTER 2016-11-06 02:28 | Emergency (ER) | payer SELFPAY ==
[2016-11-06 04:07] LABS: Urine Drugs of Abuse Note Disclamer
[2016-11-06 04:31] LABS: Basophils % (Auto) 0.5 % (0.0-1.8); Eosinophils % (Auto) 1.7 % (0.0-4.3); Hematocrit 39.4 % (35.5-45.6); Hemoglobin 13.2 gm/dl (11.8-15.2); Mean Corpuscular HGB Conc 33 % (32-34); Mean Corpuscular Hemoglobin 27 pg (28-32); Mean Corpuscular Volume 82 fl (84-94); Platelet Count 275 K/mm3 (140-440); Red Blood Count 4.83 M/mm3 (3.65-5.03); Red Cell Distribution Width 15.2 % (13.2-15.2); White Blood Count 8.7 K/mm3 (4.5-11.0)
[2016-11-06 04:33] LABS: Anion Gap 20 mmol/L; Blood Urea Nitrogen 6 mg/dL (9-20); Calcium 9.5 mg/dL (8.4-10.2); Carbon Dioxide 29 mmol/L (22-30); Chloride 101.1 mmol/L (98-107); Glucose 102 mg/dL (75-100); Potassium 3.7 mmol/L (3.6-5.0); Sodium 146 mmol/L (137-145)
[2016-11-06 04:34] LABS: Bilirubin,Urine NEG (Negative); Blood,Urine NEG (Negative); Ketones,Urine NEG (Negative); Leukocyte Esterase,Urine NEG (Negative); Mucus,Urine FEW /HPF; Nitrite,Urine NEG (Negative); Protein,Urine <15 mg/dL mg/dL (Negative); Urobilinogen,Urine < 2.0 mg/dL (<2.0); WBC,Urine < 1.0 /HPF (0.0-6.0)
--- NOTE | 2016-11-06 05:19 | Emergency Department Report ---
HPI - General Chief Complaint: Psych Time Seen by Provider: 11/06/16 05:15 - HPI HPI: This is a 55-year-old -[place] male who presents to the emergency department with complaint of alcohol intoxication, auditory hallucinations and suicidal ideations. The patient is a daily drinker but only drinks beer allegedly. He has a past medical history of alcoholism. He has a past psychiatric history of PTSD, prior suicidal ideations but when asked if he has any diagnosed history of bipolar disorder or schizophrenia or anything else he says "I don't know." The patient says that he does not want to take any type of psychiatric medications. The patient says that he is hearing voices and they are laughing at him and they are telling him to harm himself and he would have the plan to cut his wrists. He denies any homicidal ideations or visual hallucinations. ED Past Medical Hx - Past Medical History Previous Medical History?: Yes Hx Psychiatric Treatment: Yes (PTSD, Alcoholic, Prior SI) - Surgical History Additional Surgical History: Pt Denies - Social History Smoking Status: Current Every Day Smoker - Medications Home Medications: Home Medications Medication Instructions Recorded Confirmed Last Taken Type Mirtazapine [Remeron] 15 mg PO QHS #30 tablet 11/04/16 Unknown Rx ED Review of Systems ROS: Stated complaint: DEPRESSION,DISTRISS,ANXIETY Other details as noted in HPI Comment: All other systems reviewed and negative Constitutional: denies: chills, fever Eyes: denies: eye pain, eye discharge, vision change ENT: denies: ear pain, throat pain Respiratory: denies: cough, shortness of breath, wheezing Cardiovascular: denies: chest pain, palpitations Gastrointestinal: denies: abdominal pain, nausea, diarrhea Genitourinary: denies: urgency, dysuria Musculoskeletal: denies: back pain, joint swelling, arthralgia Skin: denies: rash, lesions Neurological: denies: headache, weakness, paresthesias Psychiatric: auditory hallucinations, suicidal thoughts. denies: visual hallucinations, homicidal thoughts Physical Exam - Physical Exam Vital Signs: Vital Signs 11/06/16 03:36 Temperature 98.6 F Pulse Rate 89 Respiratory 18 Rate Blood Pressure 144/99 O2 Sat by Pulse 96 Oximetry Physical Exam: GENERAL: The patient is well-developed well-nourished. Patient is sleeping but arousable. HEENT: Normocephalic. Atraumatic. Extraocular motions are intact. Patient has moist mucous membranes. NECK: Supple. Trachea is midline. CHEST/LUNGS: Clear to auscultation. There is no respiratory distress noted. HEART/CARDIOVASCULAR: Regular. There is no tachycardia. There is no gallop rub or murmur. ABDOMEN: Abdomen is soft, nontender. Patient has normal bowel sounds. There is no abdominal distention. SKIN: Skin is warm and dry. NEURO: The patient is sleepy but arousable. He is intoxicated but is able to answer questions appropriately. Follows commands. The patient is cooperative. The patient has no focal neurologic deficits. No slurred speech. MUSCULOSKELETAL: There is no tenderness or deformity. There is no limitation range of motion. There is no evidence of acute injury. ED Course Vital Signs 11/06/16 03:36 Temperature 98.6 F Pulse Rate 89 Respiratory 18 Rate Blood Pressure 144/99 O2 Sat by Pulse 96 Oximetry ED Medical Decision Making - Lab Data Result diagrams: 11/06/16 03:59 11/06/16 03:59 - Medical Decision Making 55-year-old male presents with some alcohol intoxication, but more concerning with auditory hallucinations that are causing suicidal ideations. The patient says that the voices are laughing at him and telling him that he should kill himself by slitting his wrist. He also appears to have some depression and/or resentment and says that he is feeling like he is a disappointment everyone. The patient's vital signs of in stable throughout his ED course. His blood alcohol level came back at 0.15 which is about twice the legal limit. He will be given some thiamine and multivitamin and we will watch him in the emergency department. However the patient has been made a 1013 secondary to his suicidal ideations. We will need to wait until he is at a legal sober level but otherwise the patient is medically cleared and safe to start the process for psychiatric placement. - Differential Diagnosis schizophrenia, bipolar disorder, schizoaffective, depression, substance abu Critical Care Time: No Critical care attestation.: If time is entered above; I have spent that time in minutes in the direct care of this critically ill patient, excluding procedure time. ED Disposition Clinical Impression: Auditory hallucinations, Suicidal ideations Alcohol intoxication Qualifiers: Complication of substance-induced condition: uncomplicated Qualified Code(s): F10.920 - Alcohol use, unspecified with intoxication, uncomplicated Depression Qualifiers: Depression Type: unspecified Qualified Code(s): F32.9 - Major depressive disorder, single episode, unspecified Disposition: DC/TX-65 PSY HOSP/PSY UNIT Is pt being admited?: No Condition: Stable Referrals: PRIMARY CARE, [Primary Care Provider] - 3-5 Days Time of Disposition: 05:19
[2016-11-06] MEDS ORDERED: VITAMIN B-1 PO ONE (05:20)
[2016-11-06] MEDS ORDERED: THERAGRAN Tab PO ONE (05:20)
--- NOTE | 2016-11-06 20:57 | Consultation ---
History of Present Illness - Reason for Consult Reason for consult: psych consult - Chief Complaint Chief complaint: cc: "tried to harm myself." HPI: Patient is a 55 year old BM who was just here yesterday- please refer to these psych notes for more info. Patient states that he left thinking he could handle his illness. However after returning home, he notes that he was immediately depressed and turned to using etoh- a 6 pack. This led to increased depression with voices telling him "all kinds of stuff." Psychosocial stressors contributing to his issues include his ex, living situation, and lack of work. He became so depressed that he notes he took a bunch of unknown pills in an attempt to kill himself- leading to him presenting back to [facility]. currently he remains depressed with +AH telling him to kill self. He denies any current euphoria or paranoia. No current withdrawal symptoms. Medications and Allergies Allergies Allergy/AdvReac Type Severity Reaction Status Date / Time No Known Allergies Allergy Verified 09/30/16 05:45 Home Medications Medication Instructions Recorded Confirmed Last Taken Type Mirtazapine [Remeron] 15 mg PO QHS #30 tablet 11/04/16 11/06/16 Unknown Rx Past psychiatric history - past Psychiatric treatment and history psychiatric treatment history: inpt psych: 2x- last time was [place] and last week at [place] 2 weeks ago. unknown diagnosis outp none +Suicide attempts 6 weeks ago unknown family history +trauma with the service of seeing people substance history: etoh, daily use, last use today, first began age 14 - Social History Social history: other (homeless, not dating, no children, no work, +SSD, 9th grade education, ) Mental Status Exam - Vital signs Last Vital Signs Temp 98.3 F 11/06/16 08:59 Pulse 82 11/06/16 08:59 Resp 16 11/06/16 08:59 BP 132/87 11/06/16 08:59 Pulse Ox 100 11/06/16 08:59 - Exam Orientation: time, place Affect: depressed Mood: sad Thought Process: Intact Perceptions: auditory, hallucinations Speech: normal rate and pattern Concentration: focused Motor activity: normal Level of consciousness: alert Memory: Intact Interaction: cooperative Mini mental status exam(if necessary): 24-30 Results Result Diagrams: 11/06/16 03:59 11/06/16 03:59 Abnormal lab results 11/06/16 11/06/16 11/06/16 Range/Units 03:59 03:59 03:59 MCV 82 L (84-94) fl MCH 27 L (28-32) pg Sodium 146 H (137-145) mmol/L BUN 6 L (9-20) mg/dL Glucose 102 H (75-100) mg/dL Plasma/Serum Alcohol 0.15 H (0-0.07) gm% All other labs normal. Assessment and Plan Assessment and plan: 55 year old BM with unknown prior history- patient had noted bipolar, psychosis , depression, and ptsd. Presents after a suicide attempts upon leaving the hospital yesterday. Patient noted +substance use and ongoing depression as the reasons. Plan: Mood d.o nos, eval for bipolar I d/o nos, versus MDD with psychosis, vs schizoaffective d.o use Seroquel 200mg qhs with zoloft 50mg daily for his mood- discussed risks, side effects, and benefits will look for inpt psych admission Substance use- etoh- observe for any withdrawal- will add ativan 1 mg prn for this
[2016-11-06] MEDS ORDERED: ATIVAN PO PRN (21:06)
[2016-11-07] MEDS ORDERED: ZOLOFT PO SCH (10:00)
--- NOTE | 2016-11-07 11:23 | Progress Note ---
Subjective - Reason for Consult Consult date: 11/07/16 Reason for consult: Psychiatry Follow-up - Chief Complaint Chief complaint: "It's the voices" Patient is a 55 year old BM who was just here yesterday- please refer to these psych notes for more info. Today patient is calm and cooperative during assessment. He stated that he could not handle his current situation. He stated that his issues with being unemployed, his ex girlfriend, and his current living situation has made life difficult for him. He stated that he went back to drinking (etoh) and took pills to kill himself. He continue to state that he hear voices telling him to harm himself. He rate his depression 6/10, with 10 being the worse. He denies HI's, poor appetite, and sleep disturbance. Mental Status Exam - Vital signs Last Vital Signs Temp 97.7 F 11/07/16 08:28 Pulse 74 11/07/16 08:28 Resp 14 11/07/16 08:29 BP 127/72 11/07/16 08:28 Pulse Ox 97 11/07/16 08:29 - Exam Narrative exam: MSE: Appearance: cooperative, calm Behavior: good eye contact Speech: regular rate and tone Mood: "I don't know" Affect: congruent to mood Thought Process: circumstantial Thought Content: denies HI's and VH's Motor Activity: lying in bed Cognition: a/ox 3 Insight: limited Judgment: poor Assessment and Plan Impression: Unspecified Mood DO, Eval for Bipolar vs MDD with psychosis, vs Schizoaffective DO. Today patient is calm and cooperative during assessment. He stated that he could not handle his current situation. He stated that his issues with being unemployed, his ex girlfriend, and his current living situation has made life difficult for him. He stated that he went back to drinking (etoh) and took pills to kill himself. Patient stated that his alcohol addiction and depression is his reason for SI's. No acute withdrawals noted ( etoh) Recommendation/Plan: Continue 1013 with placement to [facility] today. Continue Seroquel 200 mg PO HS for adjunct treatment, Zoloft 50 mg PO daily for depression, and Ativan 1 mg PO PRN TID for alcohol withdrawals. Discussed possible metabolic side effects of Seroquel with patient. Also, discussed possible suicidality and medication induced bonita reference antidepressants with patient. Discussed the importance of abstaining from alcohol (etoh).
[2016-11-07 20:45] VITALS: BP 146/80
== END 2016-11-07 23:39 ==
LOC: EEVIPCON 02:28 → ED 02:28
DX: F10.920 Alcohol use, unspecified with intoxication, uncomplicated (principal); F32.9 Major depressive disorder, single episode, unspecified; R45.851 Suicidal ideations; R44.0 Auditory hallucinations; F17.200 Nicotine dependence, unspecified, uncomplicated
CPT/HCPCS: 36415; 80048; 80307; 81001; 85025; 99285; G0480; 80320